=== PATIENT | female | born 1960 | race American Indian/Alaskan Native ===

== ENCOUNTER → 2020-01-18 13:58 | Outpatient (BNVA) | payer MEDICARE, MEDICAID, SELFPAY | PROVIDERS: PCP Internal Medicine Geriatric Medicine; Referring Provider Internal Medicine Geriatric Medicine; Visit Provider Student in an Organized Health Care Education/Training Program | DX: M17.0 Bilateral primary osteoarthritis of knee (principal) | CPT/HCPCS: 20610; 99212 ==

== ENCOUNTER 2020-01-20 13:27 | Outpatient (REF) | payer MEDICARE, MEDICAID, SELFPAY ==
--- NOTE | 2020-01-20 13:31 | XR_ITS ---
EXAMINATION: BILATERAL KNEE X-RAY CLINICAL INFORMATION: Primary osteoarthritis COMPARISON: Previous right knee x-ray most recent May 2018 TECHNIQUE: 3 views of each knee FINDINGS: Right: Bone alignment is normal. No fracture or dislocation is seen. There are small osteophytes medial femoral tibial and patellofemoral joints. There is a small joint effusion. Left knee: Bone alignment is normal. No fracture or dislocation is seen. There are small osteophytes at the medial femoral tibial and patellofemoral joints. There is no joint effusion. XR/XR knee LT 3V IMPRESSION: Mild bilateral osteoarthritis, right greater than left.
--- NOTE | 2020-01-20 13:38 | XR_ITS ---
EXAMINATION: BILATERAL KNEE X-RAY CLINICAL INFORMATION: Primary osteoarthritis COMPARISON: Previous right knee x-ray most recent May 2018 TECHNIQUE: 3 views of each knee FINDINGS: Right: Bone alignment is normal. No fracture or dislocation is seen. There are small osteophytes medial femoral tibial and patellofemoral joints. There is a small joint effusion. Left knee: Bone alignment is normal. No fracture or dislocation is seen. There are small osteophytes at the medial femoral tibial and patellofemoral joints. There is no joint effusion. XR/XR knee RT 3V IMPRESSION: Mild bilateral osteoarthritis, right greater than left.
== END 2020-01-20 13:28 | disposition home or self-care (01) ==
LOC: HO.XRAY 13:27
PROVIDERS: PCP Internal Medicine Geriatric Medicine; Visit Provider Student in an Organized Health Care Education/Training Program
DX: M17.12 Unilateral primary osteoarthritis, left knee (principal); M17.11 Unilateral primary osteoarthritis, right knee
CPT/HCPCS: 73562

== ENCOUNTER 2020-03-10 13:00 | Outpatient (REF) | payer MEDICARE, MEDICAID, SELFPAY ==
--- NOTE | 2020-03-10 13:09 | XR_ITS ---
EXAMINATION: XR SHOULDER, RIGHT CLINICAL INFORMATION: Right shoulder pain COMPARISON: None TECHNIQUE: AP external rotation, Grashey, scapular Y, and axillary views of the right shoulder. FINDINGS: There is no visible acute fracture, dislocation or subluxation. The glenohumeral joint space is normal. There is m mild periarticular spurring right AC joint with vacuum phenomena. The soft tissues are normal. XR/XR shoulder RT min 2V IMPRESSION: Mild degenerative changes right AC joint. The glenohumeral joint space is normal.
== END 2020-03-10 13:01 | disposition home or self-care (01) ==
LOC: HO.XRAY 13:00
PROVIDERS: PCP Internal Medicine Geriatric Medicine; Visit Provider Family Medicine
DX: M25.511 Pain in right shoulder (principal)
CPT/HCPCS: 73030

== ENCOUNTER → 2020-04-04 13:52 | Outpatient (BNVA) | payer MEDICARE, MEDICAID, SELFPAY | PROVIDERS: PCP Internal Medicine Geriatric Medicine; Visit Provider Orthopaedic Surgery | DX: M75.41 Impingement syndrome of right shoulder (principal) | CPT/HCPCS: 99202 ==

== ENCOUNTER → 2020-05-18 08:55 | Outpatient (BNVA) | payer MEDICARE, MEDICAID, SELFPAY | PROVIDERS: PCP Internal Medicine Geriatric Medicine; Visit Provider Student in an Organized Health Care Education/Training Program | DX: M17.11 Unilateral primary osteoarthritis, right knee (principal); M17.12 Unilateral primary osteoarthritis, left knee | CPT/HCPCS: 20610; 99212 ==

== ENCOUNTER 2021-05-02 14:26 | Outpatient (REF) | payer MEDICARE, MEDICAID, SELFPAY ==
--- NOTE | ~2021-05-02 | MM_ITS ---
EXAMINATION: MM SCREENING DIGITAL BREAST TOMOSYNTHESIS, BILATERAL CLINICAL INFORMATION: Screening. Asymptomatic. The lifetime risk of breast cancer based on the Tyrer-Cuzick Model is 11%. COMPARISON: Mammography: 05/26/2018, 11/05/2011, 10/21/2011; targeted left breast ultrasound 11/05/2011. TECHNIQUE: Digital breast tomosynthesis is performed in both the craniocaudal and mediolateral oblique views along with computer-aided detection (CAD). Synthesized 2D images are generated from the tomosynthesis. FINDINGS: There are scattered areas of fibroglandular density (ACR BI-RADS breast composition Category b). There are no significant masses, abnormal calcifications, or other abnormalities. There is a small cyst posterior medial left breast similar to remote prior mammography and ultrasound 2011. There is no developing density or interval mass or architectural abnormality. No abnormal calcifications. MM/MM tomosynthesis screening BI IMPRESSION: No mammographic evidence of malignancy. ASSESSMENT: BI-RADS 2: Benign RECOMMENDATION: Routine annual mammography screening. This patient's information was entered into a reminder system with a target due date for their next mammogram.
== END 2021-05-02 14:27 | disposition home or self-care (01) ==
LOC: HO.MAMMO 14:26
PROVIDERS: PCP Internal Medicine Geriatric Medicine; Visit Provider Internal Medicine Geriatric Medicine
DX: Z12.31 Encounter for screening mammogram for malignant neoplasm of breast (principal)
CPT/HCPCS: 77063; 77067

== ENCOUNTER 2021-05-03 12:12 | Outpatient (REF) | payer MEDICARE, MEDICAID, SELFPAY ==
--- NOTE | ~2021-05-03 | XR_ITS ---
EXAMINATION: XR KNEE AP STANDING CLINICAL INFORMATION: Pain COMPARISON: Previous x-ray December 2019 TECHNIQUE: AP bilateral standing view of the knees was obtained. FINDINGS: Bone alignment is normal. No fracture or dislocation is seen. There is arthritis at the medial femoral tibial joints, right greater than left. Soft tissues are unremarkable. XR/XR knee standing BI IMPRESSION: Arthritis at the medial femoral tibial joints, right greater than left.
== END 2021-05-03 12:13 | disposition home or self-care (01) ==
LOC: HO.HOSX 12:12
PROVIDERS: Visit Provider Orthopaedic Surgery
DX: M17.0 Bilateral primary osteoarthritis of knee (principal); E11.9 Type 2 diabetes mellitus without complications; F17.210 Nicotine dependence, cigarettes, uncomplicated
CPT/HCPCS: 20610; 73565; 99202; J1100

== ENCOUNTER → 2021-06-19 15:07 | Outpatient (BNVA) | payer MEDICARE, MEDICAID, SELFPAY | PROVIDERS: PCP Internal Medicine Geriatric Medicine; Visit Provider Orthopaedic Surgery | DX: G56.01 Carpal tunnel syndrome, right upper limb (principal) | CPT/HCPCS: 99202 ==

== ENCOUNTER 2021-07-23 10:53 | Day surgery (SDC) | payer MEDICARE, MEDICAID, SELFPAY ==
--- NOTE | 2021-07-23 10:53 | W.PM.OPN ---
Operative Note Operative Note Date of Service: 07/23/21 Narrative: Preop diagnosis: 1. right Carpal tunnel syndrome Postop diagnosis: same Procedure: 1. right Carpal tunnel release Surgeon: Ashley Sampson MD Anesthesia: local block using 1% lidocaine with epinephrine Findings: Thickened transverse carpal ligament. EBL: Less than 5 mL Specimens: None Complications: None Disposition: Brought to recovery room in stable condition Plan: Follow-up for 10-14 days for wound check and suture removal Indications: The patient is 61 years old, with right carpal tunnel syndrome that has been unresponsive to nonoperative management. The risks and benefits of operative treatment including but not limited to risk of damage to blood vessels, nerves, tendons, infection, persistent pain, persistent symptoms, or possible need for additional surgery were discussed with the patient and the patient wishes to proceed with surgery. Procedure: Once consent was obtained a local block was performed using a combination of 1% lidocaine with epinephrine. The patient was then brought back to the operating suite and placed on the operative table in supine position. A tourniquet was applied to the proximal aspect of the right upper extremity and the limb was prepped and draped in a standard surgical fashion. Once assured that we had a good block, a 1.5 cm longitudinal incision was made centered over the carpal tunnel. The incision was made through the skin to the subcutaneous tissues using a #15 blade. Dissection was made down to the level of the transverse carpal ligament with care being taken to protect the palmar cutaneous nerve. Once the transverse carpal ligament was clearly visualized, a longitudinal incision was made in the transverse carpal ligament 1st using a #15 blade, then using tenotomy scissors under direct visualization. Care was taken to look for and protect the motor branch of the median nerve when seen in this area. Once satisfied with our carpal tunnel release the wound was copiously irrigated with normal saline and hemostasis was obtained with a brief period of local pressure. The skin edges were reapproximated with some 5.0 nylon suture material and a sterile dressing was applied. The patient appears to have tolerated the procedure well and with no complications. All digits were well vascularized at the conclusion of the case.
[2021-07-23 11:01] VITALS: BMI 50.5
[2021-07-23 11:02] VITALS: BP 135/70; PULSE 65; RESP 16; TEMP 36.8; O2SAT 96
--- NOTE | 2021-07-23 11:37 | MHC.SHP ---
Pre-Procedural Eval Section A Date of Service: 07/23/21 The patient is an INPATIENT: No Changes since office visit: No Cold of Flu in the past 2 weeks, No New Medical Problems, No Changes in Medication and No Patient answered all questions The History & Physical has been completed within 30 days and I have reviewed it.: Yes Section B Chief Complaint: lesion median nerve Allergies: Allergies Allergy/AdvReac Type Severity Reaction Status Date / Time No Known Allergies Allergy Verified 06/19/21 15:27 Plan I have reviewed the history and physical and performed a pertinent physical examination on my patient. No changes have occurred unless specified.
[2021-07-23 12:28] VITALS: BP 116/58; PULSE 64; RESP 18; TEMP 36.6; O2SAT 99
== END 2021-07-23 12:41 | disposition home or self-care (01) ==
PROVIDERS: PCP Internal Medicine Geriatric Medicine; Visit Provider Orthopaedic Surgery
PROC: (CPT 64721; principal; 2021-07-23 12:10)
DX: G56.10 Other lesions of median nerve, unspecified upper limb (principal); R20.0 Anesthesia of skin; E11.8 Type 2 diabetes mellitus with unspecified complications; F41.1 Generalized anxiety disorder; F17.210 Nicotine dependence, cigarettes, uncomplicated; Z98.84 Bariatric surgery status
CPT/HCPCS: 64721; J0171

== ENCOUNTER → 2021-08-02 13:02 | Outpatient (BNVA) | payer MEDICARE, MEDICAID, SELFPAY | PROVIDERS: Visit Provider Orthopaedic Surgery | DX: M17.0 Bilateral primary osteoarthritis of knee (principal) | CPT/HCPCS: 20610; 99212; J1100 ==

== ENCOUNTER → 2021-08-07 12:10 | Outpatient (BNVA) | payer MEDICARE, MEDICAID, SELFPAY | PROVIDERS: Visit Provider Orthopaedic Surgery | DX: G56.01 Carpal tunnel syndrome, right upper limb (principal) | CPT/HCPCS: 99212 ==

== ENCOUNTER 2021-12-14 10:51 | Outpatient (REF) | payer MEDICARE, MEDICAID, SELFPAY ==
--- NOTE | ~2021-12-14 | XR_ITS ---
EXAMINATION: XR SHOULDER, RIGHT CLINICAL INFORMATION: Right shoulder pain. COMPARISON: Right shoulder radiographs dated 03/10/2020. TECHNIQUE: AP external rotation, Grashey, scapular Y, and axillary views of the right shoulder. FINDINGS: Mild right glenohumeral and acromioclavicular degenerative joint changes are seen. There is no acute fracture, dislocation or joint effusion. The soft tissues are unremarkable. XR/XR shoulder RT min 2V IMPRESSION: Mild degenerative joint changes without significant change. No acute abnormality.
--- NOTE | ~2021-12-14 | XR_ITS ---
EXAMINATION: XR FOOT, LEFT CLINICAL INFORMATION: Left foot pain. COMPARISON: None TECHNIQUE: AP, lateral, and oblique views of the left foot. FINDINGS: There is no acute fracture or dislocation. The joint spaces are unremarkable. The tarsal bones are normally aligned. There is a small retrocalcaneal spur. Mild soft tissue swelling is seen. XR/XR foot LT min 3V IMPRESSION: Mild soft tissue swelling and small retrocalcaneal spur without acute osseous abnormality.
== END 2021-12-14 10:52 | disposition home or self-care (01) ==
LOC: HO.XRAY 10:51
PROVIDERS: PCP Internal Medicine Geriatric Medicine; Visit Provider Internal Medicine Geriatric Medicine
DX: M25.511 Pain in right shoulder (principal); M79.672 Pain in left foot
CPT/HCPCS: 73030; 73630

== ENCOUNTER 2022-02-26 12:13 | Outpatient (REF) | payer MEDICARE, MEDICAID, SELFPAY ==
--- NOTE | ~2022-02-26 | XR_ITS ---
EXAMINATION: XR CHEST CLINICAL INFORMATION: Acute cough, asthma. COMPARISON: None. TECHNIQUE: 2 views of the chest were obtained. FINDINGS: The lungs are hypoexpanded and clear. The heart size and pulmonary vascularity is normal. No gross bony or the body seen. XR/XR chest 2V IMPRESSION: Unremarkable chest exam. Hypoexpanded lungs without acute process.
== END 2022-02-26 12:14 | disposition home or self-care (01) ==
LOC: HO.XRAY 12:13
PROVIDERS: PCP Internal Medicine Geriatric Medicine; Visit Provider Family Medicine
DX: R05.1 Acute cough (principal)
CPT/HCPCS: 71046

== ENCOUNTER 2022-05-22 10:59 | Outpatient (REF) | payer MEDICARE, MEDICAID, SELFPAY ==
--- NOTE | ~2022-05-22 | CT_ITS ---
EXAMINATION: CT CHEST SCREENING CLINICAL INFORMATION: Nicotine dependence. COMPARISON: Chest x-ray 02/26/2022. TECHNIQUE: Multidetector volumetric CT imaging of the chest is performed without contrast using low dose technique. Additional 2D coronal and sagittal reformatted images and axial 3D maximum intensity projection (MIP) images are generated on the CT workstation. This CT examination was performed using dose optimization techniques as appropriate, variously including the following: *Automated exposure control *Adjustment of mA and/or kV according to patient size (this includes techniques or standardized protocols for targeted exams where dose is matched to indication/reason for exam; i.e. extremities or head) *Use of iterative reconstruction technique DLP: 66 mGy-cm FINDINGS: LUNGS: Lungs are well expanded and clear of acute pneumonic process. There are no pulmonary nodules, mass or consolidation. Small focal atelectatic changes are seen medially in the left lung base. MEDIASTINUM: Thyroid lobes are symmetrical and normal. The central trachea and the bronchi are widely patent. The heart size and the great vessels are normal caliber. No pericardial effusion seen. No abnormal-size mediastinal or hilar lymph nodes. CORONARY ARTERY CALCIFICATION: None visualized on this study. PLEURA: There is no pleural effusion. No pleural mass or thickening. AXILLA: No lymphadenopathy. UPPER ABDOMEN: Visualized liver, spleen, pancreas and bilateral adrenal glands are unremarkable. OSSEOUS STRUCTURES: No aggressive lytic or sclerotic process seen. There is mild ventral spondylosis throughout dorsal spine. CT/CT lung screening IMPRESSION: Unremarkable CT chest exam. ASSESSMENT: Lung-RADS category 1: Negative RECOMMENDATION: Low-dose annual CT chest exam.
== END 2022-05-22 11:00 | disposition home or self-care (01) ==
LOC: HO.CT 10:59
PROVIDERS: Visit Provider Physician Assistant Medical
DX: Z12.2 Encounter for screening for malignant neoplasm of respiratory organs (principal); F17.210 Nicotine dependence, cigarettes, uncomplicated
CPT/HCPCS: 71271

== ENCOUNTER → 2022-05-31 13:54 | Outpatient (BNVA) | payer MEDICARE, MEDICAID, SELFPAY | PROVIDERS: PCP Internal Medicine Geriatric Medicine; Visit Provider Physician Assistant Medical | DX: F17.210 Nicotine dependence, cigarettes, uncomplicated (principal); Z71.6 Tobacco abuse counseling | CPT/HCPCS: G0296 ==

== ENCOUNTER 2022-09-19 11:56 | Outpatient (REF) | payer MEDICARE, MEDICAID, SELFPAY | END 2022-09-19 11:57 | disposition home or self-care (01) | LOC: HO.HOSX 11:56 | PROVIDERS: Visit Provider Orthopaedic Surgery | DX: M17.0 Bilateral primary osteoarthritis of knee (principal); M70.72 Other bursitis of hip, left hip; Z87.39 Personal history of other diseases of the musculoskeletal system and connective tissue | CPT/HCPCS: 20610; 73560; 73565; 99212; J1100 ==

== ENCOUNTER 2023-01-15 12:31 | Outpatient (REF) | payer MEDICARE, MEDICAID, SELFPAY ==
[2023-01-15 14:38] LABS: Anion Gap 11 (12-20); Blood Urea Nitrogen 13 mg/dL (9-16); Calcium 10.4 mg/dL (8.4-10.2); Carbon Dioxide 25 mmol/L (22-29); Chloride 108 mmol/L (96-108); Estimated Glomerular Filt Rate > 60; Glucose Random 84 mg/dL (60-115); Potassium 4.3 mmol/L (3.3-5.1); Sodium 140 mmol/L (135-145)
[2023-01-15 17:09] LABS: Creatinine Urine 153.74 mg/dL; Microalbum/Creatinine Ratio Ur 9.7 ug/mg cr (<30)
== END 2023-01-15 12:32 | disposition home or self-care (01) ==
LOC: HO.HHCL 12:31
PROVIDERS: Visit Provider Internal Medicine Geriatric Medicine
DX: E11.9 Type 2 diabetes mellitus without complications (principal)
CPT/HCPCS: 36415; 80048; 82043; 82570

== ENCOUNTER 2023-11-14 10:59 | Outpatient (AMB) | payer MEDICARE, MEDICAID, SELFPAY ==
--- NOTE | 2023-11-14 11:18 | MHC.OFFVIS ---
Vital Signs 11/14/23 11:27 Height 4 ft 11 in Weight 176 lb BMI 35.5 Intake Visit Reasons: OV - Bilateral Knee OA Intake Note: Susana is a 62 year old woman with severe right knee OA. She was last injected 09/20/23, with good relief. She has pain with daily activity, worse with using stairs and at night. Patient also has history of left knee OA, which was last injected 05/03/21 Allergies No Known Allergies Allergy (Verified 11/14/23 11:24) HPI HPI OV - Bilateral Knee OA: Details: Susana is a 62 year old woman with severe right knee OA. She was last injected 09/20/23, with good relief. She has pain with daily activity, worse with using stairs and at night. Patient also has history of left knee OA, which was last injected 05/03/21. She is complaining of left knee pain mostly today. SHe has had injections in the past but took a break for the last year becasue of weight gain and her diabetes. [facility] Medical History (Updated 09/19/22 @ 16:51 by Harsha Duarte MD) Nicotine dependence, cigarettes, uncomplicated Carpal tunnel syndrome of right wrist Depression Anxiety Diabetes Obesity Rotator cuff impingement syndrome of right shoulder Primary osteoarthritis of right knee History of anemia History of asthma History of vitamin D deficiency History of fibromyalgia Surgical History History of carpal tunnel surgery of right wrist History of endoscopy History of hysteroscopy History of colonoscopy History of gastric bypass History of section Family History Mother No problems noted. Father No problems noted. Social History Alcohol intake: never Patient Tobacco Use Status: Current everyday Tobacco user Tobacco use type: Cigarette Years Smoked: (onset 17yo, 1ppd x 45yrs, 40pyh) Current occupational status: disabled Current occupation: right handed Physical Exam Vital Signs: BMI result Body Mass Index 35.5 Extrem Other: medial joint line ttp left knee. Office Procedures Joint Injection/Aspiration Joint Injection/Aspiration Details: Injected 1 mL of Decadron and 3 mL 1% lidocaine and 3 mL of 0.25% Marcaine. Site was prepped using aseptic technique. Patient tolerated the procedure well. Primary Site: left knee Approach Used: anterolateral Coding - Large joint Procedure code (CPT) selection complete Assessment & Plan Assessment & Plan (1) Primary osteoarthritis of left knee: Code(s): M17.12 - Unilateral primary osteoarthritis, left knee Category: Medical Plan: I injected her left knee today. If that is not sufficiently helpful we can consider gel injections. If it helps for more than 3 months she can return to see me for repeat injections. (2) Diabetes: Code(s): E11.9 - Type 2 diabetes mellitus without complications Category: Medical Plan: Informed patient of hyperglycemic effects of steroids Coding Level of Care Code Est Pt Level 4 (10495) Diagnoses Primary osteoarthritis of left knee M17.12 Diabetes E11.9 CPT Codes Coding - Large joint: 68175 - Large joint ([id number])
[2023-11-14 11:27] VITALS: BMI 35.5
== END 2023-11-14 12:02 | disposition home or self-care (01) ==
PROVIDERS: PCP Internal Medicine Geriatric Medicine; Visit Provider Orthopaedic Surgery
DX: M17.12 Unilateral primary osteoarthritis, left knee (principal); E11.9 Type 2 diabetes mellitus without complications
CPT/HCPCS: 20610; 99214

== ENCOUNTER → 2023-11-14 10:59 | Outpatient (BNVA) | payer MEDICARE, MEDICAID, SELFPAY | PROVIDERS: PCP Internal Medicine Geriatric Medicine; Visit Provider Orthopaedic Surgery | DX: M17.0 Bilateral primary osteoarthritis of knee (principal); E11.9 Type 2 diabetes mellitus without complications | CPT/HCPCS: 20610; 99212; J0665; J1100 ==

== ENCOUNTER 2024-01-19 11:32 | Outpatient (REF) | payer MEDICARE, MEDICAID, SELFPAY ==
[2024-01-19 14:08] LABS: Estimated Average Glucose 120 mg/dL; Hemoglobin A1C 107.3323 umol/L; Hemoglobin A1c % 5.8 % (<6.0); Total Hemoglobin (HGBA1C) 2711.5457 umol/L
[2024-01-19 14:22] LABS: Alanine Aminotransferase 20 U/L (0-31); Albumin Level 4.2 g/dL (3.5-5.0); Alkaline Phosphatase 117 U/L (39-117); Anion Gap 12 (12-20); Aspartate Amino Transferase 35 U/L (5-31); Bilirubin Total 0.3 mg/dL (0.0-1.0); Blood Urea Nitrogen 13 mg/dL (9-16); Carbon Dioxide 21 mmol/L (22-29); Chloride 111 mmol/L (96-108); Estimated Glomerular Filt Rate > 60; Glucose Random 152 mg/dL (60-115); Potassium 3.5 mmol/L (3.3-5.1); Sodium 140 mmol/L (135-145); Total Protein 7.1 g/dL (6.5-8.0)
[2024-01-19 14:43] LABS: Creatinine Urine 210.95 mg/dL; Microalbum/Creatinine Ratio Ur 14.6 ug/mg cr (<30)
[2024-01-19 18:53] LABS: CT PCR NOT DETECTED (Not Detect.); NG PCR NOT DETECTED (Not Detect.)
[2024-01-20 11:53] LABS: HIV AB/AG Nonreactive (Nonreactive); HIV Num 1 0.07 S/CO (0.00-0.99); ~HepC Num1 0.29 S/CO (0.00-0.79); ~Hepatitis C Antibody Nonreactive (Nonreactive)
[2024-01-21 11:58] LABS: RPR Rapid Plasma Reagin NON-REACTIVE (NON-REACTIVE)
== END 2024-01-19 11:33 | disposition home or self-care (01) ==
LOC: HO.HHCL 11:32
PROVIDERS: Visit Provider General Practice
DX: Z11.3 Encounter for screening for infections with a predominantly sexual mode of transmission (principal); E11.9 Type 2 diabetes mellitus without complications
CPT/HCPCS: 36415; 80053; 82043; 82570; 83036; 86592; 86803; 87389; 87491; 87591

== ENCOUNTER 2024-06-28 10:52 | Outpatient (REF) | payer MEDICARE, MEDICAID, SELFPAY ==
--- OUTSIDE RECORDS SUMMARY | 2024-06-28 13:00 | XMS_ITS | Encounter Summary ---
Author Organization [employer] Address [address] [facility] [address] [place] [address] Care Team Providers Care Risk Control Officer Name Role Phone Name, Henri KEYES Primary Care Provider [phone] Reason for Visit * Reason Comments Med Change Request Encounter Details Date Type Department Care Team ([facility] Contact Info) Description 03/04/2022 Refill [facility] [address] [place], [place] [phone] Rose Choi MD [address] [place], [place] [phone] Wheezing Social History Tobacco Use Types Packs/Day Years Used Date Smoking Tobacco: Never Passive Smoke Exposure: Never Smokeless Tobacco: Never Comments Unknown Sex and Gender Information Value Date Recorded Sex Assigned at Female 01/21/2022 10:18 AM EDT Legal Sex Female 10:18 AM EDT Gender Identity Female 01/21/2022 10:18 AM EDT Sexual Orientation Choose not to disclose 2021 10:18 AM EDT COVID-19 Exposure Response Date Recorded In the last 10 days, have yo u been in contact with someone who was confirmed or suspected to have Coronavirus/COVID-19? No / Unsure 02/25/2022 3:54 PM EST documented as of this encounter Miscellaneous Notes * Telephone Encounter - Chitra Lobo - 03/07/2022 2:27 PM EST RX for nebulizer faxed to [facility] [place] with notes 03/07/2022 * Telephone Encounter - Chitra Lobo - 03/06/2022 10:08 AM EST New RX generated for nebulizer waiting on signature also [phone] * Telephone Encounter - Elina Orona RN - 03/05/2022 2:16 PM EST Pt presents to [facility] reporting she needs nebulizer tubing/mask. Pt given supply in stock. RN willforward message to provider Dr. Choi whom saw pt, regarding orders for respiratory supplies. Please advise [facility]EN TEAM NURSES as needed. TY * Telephone Encounter - Kristin Champagne - 03/05/2022 8:38 AM EST Please review message below documented in this encounter Plan of Treatment Upcoming Encounters Date Type Department Care Team (Late st Contact Info) Description 10/13/2024 3:45 PM EDT Office Visit [facility] [address] [place] [address] Name, MD Henri [address] [place] [address] documented as of this encounter Visit Diagnoses Diagnosis Wheezing documented in this encounter Care Teams Risk Control Officer Relationship Specialty Start Date End Date Name, MD Henri [address] [place] [address] PCP - General Family Medicine 04/04/15 documented as of this encounter
--- OUTSIDE RECORDS SUMMARY | 2024-06-28 13:00 | XMS_ITS | Encounter Summary ---
Author Organization [employer] [facility] Address [address] [facility] [address] [place] [address] Care Team Providers Care Conventional Machinist Name Role Phone Name, Henri KEYES Primary Care Provider [phone] Encounter Details Date Type Department Care Team ([facility] Contact Info) Description 12/09/2022 Telephone [facility] [address] [place] [address] [phone] Henri Patrick MD [address] [place] [address] [phone] Social History Tobacco Use Types Packs/Day Years Used Date Smoking Tobacco: Every Day Cigarettes Passive Smoke Exposure: Never Smokeless Tobacco: Never Alcohol Use Standard Drinks/Week Comments Never 0 (1 standard drink = 0.6 oz pur e alcohol) Depression Answer Date Recorded Patient Health Questionnaire-9 Score 21 08/20/2022 Depression Answer Date Recorded Patient Health Questionnaire-2 Score 6 08/20/2022 Comments Unknown Sex and Gender Information Value Date Recorded Sex Assigned at Female 01/21/2022 10:18 AM EDT Legal Sex Female 10:18 AM EDT Gender Identity Female 01/21/2022 10:18 AM EDT Sexual Orientation Choose not to disclose 2021 10:18 AM EDT documented as of this encounter Plan of Treatment Upcoming Encounters Date Type Department Care Team (Late Contact Info) Description 10/13/2024 3:45 PM EDT Office Visit [facility] [address] [place] [address] [phone] Henri Patrick MD [address] [place] [address] [phone] documented as of this encounter Visit Diagnoses Not on filedocumented in this encounter Additional Health Concerns Assessment Noted Time PHQ-9 Depression Total Score: 21 023 1:40 PM EDT documented as of this encounter Care Teams Conventional Machinist Relationship Specialty Start Date End Date Name, MD Henri [address] [place] [address] PCP - General Family Medicine 04/04/15 documented as of this encounter
--- OUTSIDE RECORDS SUMMARY | 2024-06-28 13:00 | XMS_ITS | Encounter Summary ---
Author Organization [employer] Address [address] [facility] [address] [place] [address] Care Team Providers Care Sample Washer Name Role Phone Name, Henri KEYES Primary Care Provider [phone] Reason for Visit * Reason Comments Med Refill Encounter Details Date Type Department Care Team (Late Contact Info) Description 08/24/2022 Refill [facility] [address] [place] [address] [phone] Name, MD Henri [address] [place] [phone] Social History Tobacco Use Types Packs/Day Years [...] suspected to have Coronavirus/COVID-19? No / Unsure 08/20/2022 1:29 PM EDT documented as of this encounter Plan of Treatment Upcoming Encounters Date Type Department Care Team (Late Contact Info) Description 10/13/2024 3:45 PM EDT Office Visit [facility] [address] [place] [address], [place] [address] Name, MD Henri [address] [place] [address] documented as of this encounter Visit Diagnoses Not on filedocumented in this encounter Additional Health Concerns Assessment Noted Time PHQ-9 Depression Total Score: 21 023 1:40 PM EDT documented as of this encounter Care Teams Sample Washer Relationship Specialty Start Date End Date Name, MD Henri [address] [place] [address] PCP - General Family Medicine 04/04/15 documented as of this encounter
--- OUTSIDE RECORDS SUMMARY | 2024-06-28 13:00 | XMS_ITS | Encounter Summary ---
Author Organization [employer] [facility] Address [address] [facility] [address] [place] [address] Care Team Providers Care Manager Biologics Name Role Phone Name, Henri KEYES Primary Care Provider [phone] Encounter Details Date Type Department Care Team (Late st Contact Info) Description 04/30/2022 Orders Only [facility] [address] [place] [phone] Aminah Orona LPN Social History Tobacco Use Types Packs/Day Years [...] Description 10/13/2024 3:45 PM EDT Office Visit [facility] [address] [place] [phone] Henri Patrick MD [address] [place] [phone] documented as of this encounter Visit Diagnoses Not on filedocumented in this encounter Care Teams Manager Biologics Relationship Specialty Start Date End Date Henri Patrick MD [address] [place] [phone] PCP - General Family Medicine 04/04/15 documented as of this encounter
--- OUTSIDE RECORDS SUMMARY | 2024-06-28 13:00 | XMS_ITS | Encounter Summary ---
Author Organization [employer] Address [address] [facility] 7[address] [place] [address] Care Team Providers Care Service Liaison Representative Name Role Phone Name, Henri KEYES Primary Care Provider [phone] Reason for Visit * Reason Comments Med Refill Encounter Details Date Type Department Care Team ([facility] Contact Info) Description 08/18/2022 Refill [facility] [address] [place] [address] Name, MD Henri [address] [place], [place] [phone] Fibromyalgia; Osteoarthritis of knee, unspecified laterality, unspecified osteoarthritis type Social History Tobacco Use Types Packs/Day Years Used Date Smoking Tobacco: Never Passive Smoke Exposure: Never Smokeless Tobacco: Never Depression Answer Date Recorded Patient Health Questionnaire-9 [...] PM EDT documented as of this encounter Miscellaneous Notes * Telephone Encounter - Elaine Modi - 08/20/2022 2:06 PM EDT Pt is in need of finding a place to go. States she was given notice to leave her apartment, [place] [address] [place] has been getting denied for apartments. She also needs help with her light bill it is about to be turned off. documented in this encounter Plan of Treatment Upcoming Encounters Date Type Department Care Team (Late st Contact Info) Description 10/13/2024 3:45 PM EDT Office Visit [facility] [address] [place] [address] Name, MD Henri [address] [place] [address] documented as of this encounter Visit Diagnoses Diagnosis Fibromyalgia Unspecified myalgia and myositis Osteoarthritis of knee, unspecified laterality, unspecified osteoarthritis type documented in this encounter Care Teams Service Liaison Representative Relationship Specialty Start Date End Date Name, MD Henri [address] [place] [phone] PCP - General Family Medicine 04/04/15 documented as of this encounter
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
--- OUTSIDE RECORDS SUMMARY | 2024-06-28 13:00 | XMS_ITS | Encounter Summary ---
Author Organization [employer] Address [address] [facility] [address] [place] [address] Care Team Providers Care Ground Defence Officer Name Role Phone Name, Henri KEYES Primary Care Provider [phone] Encounter Details Date Type Department Care Team ([facility] Contact Info) Description 09/22/2023 Telephone [facility] [address] [place], [place] [phone] Name, MD Henri [address] [place], [place] [phone] Social History Tobacco Use Types Packs/Day Years [...] encounter Miscellaneous Notes * Telephone Encounter - Kerrie Freire RN - 09/22/2023 12:51 PM EDT T/C to [phone] EXT [phone] for below message. No answer. LVM to call back on [phone] . * Telephone Encounter - Cee Sheets - 09/22/2023 9:05 AM EDT Tc yas [place] with [facility] requesting a call back . Regarding last message . Please contact [phone] EXT [phone] documented in this encounter Plan of Treatment Upcoming Encounters Date Type Department Care Team (Late st Contact Info) Description 10/13/2024 3:45 PM EDT Office Visit [facility] [address] [place] [address] Name, MD Henri [address] [place] [address] documented as of this encounter Visit Diagnoses Not on filedocumented in this encounter Additional Health Concerns Assessment Noted Time PHQ-9 Depression Total Score: 17 024 10:47 AM EST documented as of this encounter Care Teams Ground Defence Officer Relationship Specialty Start Date End Date Name, MD Henri [address] [place] [address] PCP - General Family Medicine 04/04/15 documented as of this encounter
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
--- OUTSIDE RECORDS SUMMARY | 2024-06-28 13:01 | XMS_ITS | Encounter Summary ---
Author Organization [employer] [facility] Address [address] [facility] [address]t [place] [address] Care Team Providers Care Campus Rep Name Role Phone Name, Henri KEYES Primary Care Provider [phone] Encounter Details Date Type Department Care Team ([facility] Contact Info) Description 03/04/2022 Orders Only [facility] [address] [place] [phone] Rose Choi MD [address] [place] [phone] Acute non-recurrent sinusitis, unspecified location (Primary Dx); Wheezing Social History Tobacco Use Types Packs/Day [...] PM EST documented as of this encounter Plan of Treatment Upcoming Encounters Date Type Department Care Team (Late Contact Info) Description 10/13/2024 3:45 PM EDT Office Visit [facility] [address] [place] [phone] Name, MD Henri [address] [place] [address] [phone] documented as of this encounter Visit Diagnoses Diagnosis Acute non-recurrent sinusitis, unspecified location- Primary Wheezing documented in this encounter Care Teams Campus Rep Relationship Specialty Start Date End Date Name, MD Henri [address] [place] [address] PCP - General Family Medicine 04/04/15 documented as of this encounter
--- OUTSIDE RECORDS SUMMARY | 2024-06-28 13:01 | XMS_ITS | Encounter Summary ---
Author Organization [employer] Address [address] [facility] [address] [place] [address] Care Team Providers Care Sand Slinger Operator Name Role Phone Name, Henri KEYES Primary Care Provider [phone] Reason for Visit * Reason Onset Date Comments Med Refill 03/20/2023 Encounter Details Date Type Department Care Team ([facility] Contact Info) Description 03/20/2023 Telephone [facility] [address] [place] [address] Name, MD Henri [address] [place], [place] [phone] Med Refill Social History Tobacco Use Types Packs/Day Years Used Date Smoking Tobacco: Every Day Cigarettes Passive Smoke Exposure: Never Smokeless Tobacco: Never Alcohol Use Standard Drinks/Week Comments Never 0 (1 standard drink = 0.6 oz pur e alcohol) Depression Answer Date Recorded Patient Health Questionnaire-9 Score 21 08/20/2022 Housing Stability Answer Date Recorded What is [...] * Telephone Encounter - Reny Camilo - 03/20/2023 11:07 AM EST TC from pt requesting medication refill. Medications needing refill : traMADol (Ultram) 50 MG tablet To be sent to: [facility]/pharmacy #[id number] documented in this encounter Plan of Treatment Upcoming Encounters Date Type Department Care Team (Late st Contact Info) Description 10/13/2024 3:45 PM EDT Office Visit [facility] [address] [place] [address] Name, MD Henri [address] [place] [address] documented as of this encounter Visit Diagnoses Not on filedocumented in this encounter Additional Health Concerns Assessment Noted Time PHQ-9 Depression Total Score: 21 023 1:40 PM EDT documented as of this encounter Care Teams Sand Slinger Operator Relationship Specialty Start Date End Date Name, MD Henri [address] [place] [address] PCP - General Family Medicine 04/04/15 documented as of this encounter
--- OUTSIDE RECORDS SUMMARY | 2024-06-28 13:01 | XMS_ITS | Clinical Summary ---
Author Organization [employer] Address [address] [place] [address] 7[address] [place] [address] Care Team Providers Care Film Reader Name Role Phone Name, Henri KEYES Primary Care Provider [phone] Allergies Active Allergy Reactions Criticality Noted Date Comments Oxycodone-Acetaminophen 08/20/2023 Medications Respiratory Therapy Supplies (Nebulizer Mask Adult) miscIndications:W heezing 1 each every 4 (four) hours if needed (asthma). 2 each 1 022 Active zolpidem (Ambien) 10 MG tablet TOME GRICELDA TABLETA TODOS LOS D AL ACOSTARSE CUANDO SEA NECESARIO 023 Active risperiDONE (RisperDAL) 2 MG tablet TOME GRICELDA TABLETA TODOS LOS D 023 Active prazosin (Minipress) 2 MG capsule TOME GRICELDA C PSULA TODOS LOS D AL ACOSTARSE 023 Active Varenicline Tartrate, Starter, (Chantix Starting Month ) 0.5 MG X 11 & 1 MG X 42 tablet therapy pack Take 0.5 mg by mouth Once daily for 3 days, THEN 0.5 mg 2 times daily for 4 days, THEN 1 mg 2 times daily for 21 days. 1 each 023 Active lidocaine (Xylocaine) 5 % ointment APPLY TO THE AFFECTED KNEE DAILY 50 g 023 Active sertraline (Zoloft) 50 MG tabletIndications :Depression, recurrent (CMS/HCC) TOME 1 TABLETA POR V A ORAL TODOS LOS D Active SUMAtriptan (Imitrex) 25 MG tabletIndications :Migraine without status migrainosus, not intractable, unspecified migraine type Take 25 mg by mouth. Active zolpidem (Ambien) 10 MG tabletIndications :Primary insomnia Take 1 tablet by mouth at bed time. Active metoprolol succinate XL (Toprol-XL) 25 MG 24 hr tabletIndications :Palpitations TAKE 1 TABLET BY MOUTH EVERY MORNING 90 tablet 1 Active valACYclovir (Valtrex) 500 MG tabletIndications :Herpes TAKE 1 TABLET BY MOUTH TWICE A DAY FOR 3 DAYS 6 tablet 5 Active gabapentin (Neurontin) 300 MG capsuleIndication s:Fibromyalgia Take 1 capsule (300 mg) by mouth 3 times daily. 90 capsule 1 024 2024 Active cetirizine (ZyrTEC) 10 MG tablet Take 1 tablet (10 mg) by mouth Once per day. 30 tablet 3 025 2025 Active fluticasone (Flonase) 50 MCG/ACT nasal spray Administer 2 sprays into each nostril Once per day. Shake gently. Before first use, prime pump. After use, clean tip and replace cap. 16 g 3 2025 Active pseudoephedrine (Sudafed) 30 MG tablet Take 1 tablet (30 mg) by mouth every 8 (eight) hours if needed for congestion for up to 5 days. 12 tablet Active Dulaglutide (Trulicity) 1.5 MG/0.5ML solution auto-injectorIndi cations:Type 2 diabetes mellitus without complication, without long-term current use of insulin ([facility]),Primary osteoarthritis involving multiple joints,Chronic pain of both knees,Severe obesity (BMI 35.0-39.9) with comorbidity ([facility]) Inject 1.5 mg under the skin 1 (one) time per week. 2 mL 2 025 2024 Active meloxicam (Mobic) 7.5 MG tabletIndications :Chronic pain of both knees Take 1 tablet (7.5 mg) by mouth Once per day. 90 tablet 3 025 2025 Active budesonide (Pulmicort Flexhaler) 180 MCG/ACT inhalerIndication s:Moderate persistent asthma without complication 1 each Active albuterol 108 (90 Base) MCG/ACT inhalerIndication s:Moderate persistent asthma without complication Inhale 2 puffs every 6 (six) hours if needed for wheezing. 18 g 6 Active albuterol (2.5 MG/3ML) 0.083% nebulizer solutionIndicatio ns:Moderate persistent asthma without complication Take 3 mL (2.5 mg) by nebulization every 4 (four) hours if needed for wheezing. 75 mL 3 025 2025 Active pantoprazole (Protonix) 40 MG EC tablet Take 1 tablet (40 mg) by mouth before breakfast. Do not crush, chew, or split. 30 tablet 11 2025 Active dulaglutide (Trulicity) 0.75 MG/0.5ML solution pen-injector Inject 0.75 mg under the skin 1 (one) time per week. 4 each 024 2024 Discontinued(D ose adjustment) Acetaminophen Extra Strength 500 MG tabletIndications :Fibromyalgia TOME DOS TABLETAS POR V A ORAL CADA SEIS HORAS POR 3 DEE CUANDO SEA NECESARIO POR DOLOR 024 2024 Discontinued meloxicam (Mobic) 7.5 MG tabletIndications :Fibromyalgia Take 1 tablet (7.5 mg) by mouth Once per day. 90 tablet 3 2024 Discontinued(R eorder (will not trigger notification to Pharmacy)) albuterol 108 (90 Base) MCG/ACT inhalerIndication s:Moderate asthma with acute exacerbation, unspecified whether persistent Inhale 2 puffs every 6 (six) hours if needed for wheezing. 18 g 6 024 2024 Discontinued(R eorder (will not trigger notification to Pharmacy)) Trulicity 0.75 MG/0.5ML solution auto-injectorIndi cations:Type 2 diabetes mellitus without complication, without long-term current use of insulin ([facility]) Inject 0.75 mg as directed 1 (one) time per week. 2 mL 5 024 2024 Discontinued(D ose adjustment) albuterol (2.5 MG/3ML) 0.083% nebulizer solutionIndicatio ns:Moderate asthma with acute exacerbation, unspecified whether persistent Take 3 mL (2.5 mg) by nebulization every 4 (four) hours if needed for wheezing. 75 mL 3 024 2024 Discontinued(R eorder (will not trigger notification to Pharmacy)) budesonide (Pulmicort Flexhaler) 180 MCG/ACT inhalerIndication s:Moderate asthma with acute exacerbation, unspecified whether persistent 1 each 024 2024 Discontinued(R eorder (will not trigger notification to Pharmacy)) naproxen (Naprosyn) 500 MG tablet Take 1 tablet (500 mg) by mouth if needed in the morning and at bedtime for mild pain. 30 tablet 1 025 2024 Discontinued(T herapy completed) Active Problems Problem Noted Date Diagnosed Date Depression, recurrent 01/19/2024 Diabetes due to undrl condition w oth diabetic n euro comp 01/19/2024 Severe obesity (BMI 35.0-39.9) with comorbidity 08/15/2023 Anemia 08/08/2023 Anxiety with depression 08/07/2023 Fibromyalgia 08/07/2023 GERD (gastroesophageal reflux disease) Insomnia 08/07/2023 History of hysterectomy 05/27/2023 Hypertensive disorder 07/09/2022 T2DM (type 2 diabetes mellitus) 07/09/2022 Primary osteoarthritis of right knee 07/09/2022 Migraine 07/09/2022 History of bariatric surgery 07/09/2022 Moderate asthma 03/26/2018 Iron deficiency anemia 03/12/2017 Fibromyositis 08/15/2011 Vertigo 08/15/2011 Allergic rhinitis 08/15/2011 Palpitations 08/15/2011 Anxiety state 08/15/2011 Resolved Problems Problem Noted Date Diagnosed Date Resolved Date Acute left otitis media 09/24/2023 04/0 06/2024 Assessment & Plan (09/24/2023 3:11 PM EDT): -left ear exam significant for OM -prescribed amoxicillin for 10 days -recommended supportive care and letting the ear drain as needed Seasonal allergic reaction 07/09/2022 0 05/27/2023 Mild intermittent asthma 07/23/201806/2024 Knee pain 05/26/2018 05/27/2023 Viral upper respiratory tract infection 03/12/2017 05/27/2023 Closed fracture of phalanx of foot 02/05/2017 05/27/2023 Obesity (BMI 30-39.9) 04/22/20162024 Lateral epicondylitis 04/20/20152024 Abnormal mammogram 10/25/2011 Acute sinusitis 08/15/2011 05/27/2023 Localized osteoarthrosis 09/19/200907/2023 Encounters Date Type Department Care Team Description 06/25/2024 3:45 PM EDT Office Visit [facility] [address] [place] [phone] Name, MD Henri Type 2 diabetes mellitus without complication, without long-term current use of insulin (CMS/[facility]) (Primary Dx); Primary osteoarthritis involving multiple joints; Chronic pain of both knees; Situational anxiety; NSAID long-term use; Somnolence, daytime; Tiredness; Severe obesity (BMI 35.0-39.9) with comorbidity (CMS/HCC); Moderate persistent asthma without complication 06/25/2024 Travel 06/03/2024 2:40 PM EDT Office Visit [facility] [address] [place] [phone] Mindi Oliveros DO Pharyngitis, unspecified etiology (Primary Dx); Sore throat from Last 3 Months Immunizations Name Administration Dates Next Due Influenza Injectable Quadriv alant Preservative Free IIV4 MDCK 01/16/2021 Influenza injectable quadriv alent IIV4 with preservative 01/01/2019,02/05/2017,12/19/2015 Influenza injectable quadriv alent preservative free 01/29/2023,12/14/2021,03/26/2018 Influenza, IIV3, injectable 01/21/2014 Influenza, seasonal, injecta ble, preservative free 01/19/2024 Pfizer Covid-19 Vaccine 12+ 01/19/2024 Pneumococcal Polysaccharide PPSV23 04/20/2015 TD (adult), 2 Lf tetanus tox oid, preservative free, adsorbed 02/05/2017 Tdap 11/04/2014 Zoster, Recombinant 09/30/2023 Social History Tobacco Use Types Packs/Day Years [...] not to disclose 2021 10:18 AM EDT Last Filed Vital Signs Vital Sign Reading Time Taken Comments Blood Pressure 127/69 06/25/2024 3:38 PM EDT Pulse 88 06/25/2024 3:38 PM EDT Temperature 36.6 ??C (97.9 ??F) 06/03/2024 1:44 PM ED T Respiratory Rate 12 06/25/2024 3:38 PM EDT Oxygen Saturation 97% 06/25/2024 3:38 PM EDT Inhaled Oxygen Concentration - - Weight 81.7 kg (180 lb 3.2 oz) 06/25/2024 3:38 P M EDT Height 149.9 cm (4' 11 ) 06/25/2024 3:38 PM EDT Body Mass Index 36.4 06/25/2024 3:38 PM EDT Plan of Treatment Upcoming Encounters Date Type Department Care Team (Late st Contact Info) Description 10/13/2024 3:45 PM EDT Office Visit [facility] [address] [place], [place] [phone] Name, MD Henri [address] [place] [address] Health Maintenance Due Date Last Done Comments CT Colonography 1962 Colonoscopy 1962 Colorectal Cancer Screening 1962 FIT DNA/Cologuard 1962 FIT 1962 FOBT 1962 Sigmoidoscopy 1962 Eye Exam 02/02/1972 Alcohol/Substance Use Screening 1974 Pap Smear 1983 Cervical Cancer Screening 02/02/1992 HPV/Cotest 02/02/1992 Pneumococcal Vaccine: 50+ Years (2 of 2 - PCV) 04/20/2016 04/20/2015 RSV Patients and Patients Aged 60 years or older (1 - Risk 60-74 years 1-dose series) 2022 Lipid Panel 12/14/2022 12/14/2021, 01/17/2021 Mammogram 05/02/2023 05/02/2021, 05/27/2018 SDOH Screening 08/21/2023 08/20/2022 Zoster Vaccines (2 of 2) 11/25/2023 09/30/2023 Depression Monitoring (PHQ-9) 11/27/2023 05/27/2023, 05/27/2023 Depression Screening 05/26/2024 05/27/2023, 05/27/19 24 Diabetes: Foot Exam 05/26/2024 05/27/2023, 05/27/2023, 05/27/2023, Additional history exists Diabetes: Hemoglobin A1C 12/25/2024 025, 01/19/2024, 05/27/2023, Additional history exists Diabetes: Urine Protein Screening 01/18/2025 01/19/2024, 01/15/2023, 12/14/2021 Tobacco Screening 06/25/2025 06/25/2024 DTaP/Tdap/Td Vaccines (3 - Td or Tdap) 02/05/2027 02/05/2017, 11/04/2014 COVID-19 Vaccine Completed 01/19/2024, 08/2021, 08/18/2020, Additional history exists HIV Screening Completed 01/19/2024 Hepatitis C Screening Completed 01/19/2024 Influenza Vaccine Completed 01/19/2024, , 12/14/2021, Additional history exists HIB Vaccines Aged Out No longer eligi ble based on patient's age to complete this topic HPV Vaccines Aged Out No longer eligi ble based on patient's age to complete this topic Hepatitis A Vaccines Aged Out No long er eligible based on patient's age to complete this topic Hepatitis B Vaccines Aged Out No long er eligible based on patient's age to complete this topic IPV Vaccines Aged Out No longer eligi ble based on patient's age to complete this topic Meningococcal Vaccine Aged Out No alejandro radha eligible based on patient's age to complete this topic RSV under 20 months Aged Out No longe r eligible based on patient's age to complete this topic Rotavirus Vaccines Aged Out No longer eligible based on patient's age to complete this topic Procedures Procedure Name Priority Date/Time Associated Diagnosis Comments POCT GLYCATED HEMOGLOBIN, TOTAL Routine 06/25/2024 3:44 PM EDT Type 2 diabetes mellitus without complication, without long-term current use of insulin ([facility]) POCT GLUCOSE Routine 06/25/2024 3:39 PM EDT Type 2 diabetes mellitus without complication, without long-term current use of insulin ([facility]) POCT INFLUENZA B (ID NOW RAPID MOLECULAR) Routine 06/03/2024 4:26 PM EDT Sore throat POCT INFLUENZA A (ID NOW RAPID MOLECULAR) Routine 06/03/2024 4:26 PM EDT Sore throat POCT RAPID STREP A Routine 06/03/2024 4: 26 PM EDT Sore throat POCT RAPID COVID ANTIGEN Routine 06/03/2024 4:26 PM EDT Sore throat ALBUMIN, RANDOM URINE W/CREATININE Routine 01/19/2024 11:45 AM EDT Type 2 diabetes mellitus without complication, without long-term current use of insulin (CMS/HCC) HEPATITIS C AB W/REFL TO HCV RNA, QN, PCR Routine 01/19/2024 11:39 AM EDT Screening examination for STI HIV 1/2 ANTIGEN/ANTIBODY, FOURTH GENERATION W/RFL Routine 01/19/2024 11:39 AM EDT Screening examination for STI LIPID PANEL, STANDARD Routine 12/14/2021 10:34 AM EDT MAMMOGRAM GENERIC Routine 05/02/2021 3:0 5 PM EST from Last 3 Months or Most Recently Relevant to Health Maintenance Results * POCT HGB A1C (06/25/2024 3:44 PM EDT) Hemoglobin A1C 5.8 4.0 - 6.0 % QC Media Lot # [id number] Lot# Expiration Date [id number] Blood 06/25/2024 3:44 PM EDT us Henri Patrick MD POINT OF CARE TEST ENTER/EDIT OR DERABLES Final Result * (ABNORMAL) POCT Glucose (06/25/2024 3:39 PM EDT) Glucose Blood, POC 216(A) 60 - 200 mg/dL QC Media Lot # [id number] Lot# Expiration Date [id number] Blood Capillary blood specimen / Unknown 06/25/2024 3:39 PM EDT Henri Patrick MD POINT OF CARE TEST ENTER/EDIT OR DERABLES Final Result * Influenza B (ID NOW Rapid Molecular) (06/03/2024 4:26 PM EDT) Pathologist [facility] Influenza B Negative Negative, Indeterminate [facility] Swab 06/03/2024 4:26 PM EDT Mindi Oliveros DO POINT OF CARE TEST ENTER/SID T ORDERABLES Final Result Performing Organization Address [facility] Co de Phone Number [facility] [address] [place] [phone] * Influenza A (ID NOW Rapid Molecular) (06/03/2024 4:26 PM EDT) [facility] Influenza A Negative Negative, Indeterminate [facility] Swab 06/03/2024 4:26 PM EDT Mindi Oliveros DO POINT OF CARE TEST ENTER/SID T ORDERABLES Final Result Performing Organization Address [facility]/ZIP Co de Phone Number [facility] [address] [place] [address] [phone] * POCT Rapid COVID Ag (06/03/2024 4:26 PM EDT) Pathologist [facility] Rapid COVID Ag Negative [facility] Swab 06/03/2024 4:26 PM EDT Mindi Oliveros DO POINT OF CARE TEST ENTER/SID T ORDERABLES Final Result Performing Organization Address [facility]/ZIP Co de Phone Number [facility] [address] [place] [phone] * POCT rapid strep A manually resulted (06/03/2024 4:26 PM EDT) Rapid Strep A Screen Negative Negative, None Detected [facility] Swab 06/03/2024 4:26 PM EDT Mindi Oliveros DO POINT OF CARE TEST ENTER/SID T ORDERABLES Final Result Performing Organization Address [facility] de Phone Number [facility] [address] [place] [address] [phone] * Albumin, Random Urine W/Creatinine (01/19/2024 11:45 AM EDT) Creatinine, Urine 210.95 mg/dL [facility] Microalbumin Urine 31.0 mg/L [facility] Microalbum Creatinine Ratio Ur 14.6 <30 ug/mg cr [facility] Comment:Albumin/Creatinine R atio Reference Ranges: Normal: < 30 ug/mg creatinine Microalbuminuria: 30 - 300 ug/mg creatinineClinical Albuminuria: > 300 ug/mg creatinine Urine (Urine, Random) 01/19/2024 11:45 AM EDT 01/19/2024 1:25 PM EDT Minnie Graff MD LAB URINE ORDERABLES Final Res ult Performing Organization Address [facility] Co de Phone Number [facility] [address] [place] [phone] * Hepatitis C Antibody with Reflex to HCV, RNA, Quantitative, Real-Time PCR (01/19/2024 11:39 AM EDT) Pathologist [facility] Hepatitis C Antibody Nonreactive Nonreactive [facility] Comment:Antibodies to HCV no t detected; does not exclude early acuteHCV infection. Blood Venous blood specimen / Unknown 01/19/2024 11:39 AM EDT 01/19/2024 1:25 PM EDT Minnie Graff MD LAB BLOOD ORDERABLES Final Res ult Performing Organization Address [facility] Co de Phone Number [facility] [address] [place] [phone] * HIV-1/2 Antigen and Antibodies, Fourth Generation, with Reflexes (01/19/2024 11:39 AM EDT) HIV AB/AG Nonreactive Nonreactive [facility] Comment:HIV-1 p24 Ag and/or HIV-1/HIV-2 Ab not detected.A test result that is nonreactive does not exclude thepossibility of exposure to or infection with HIV-1 and/orHIV-2. Nonreactive results in this assay for individualswith prior exposure to HIV-1 and/or HIV-2 may be due toantigen and antibody levels that are below the limit ofdetection of this assay.The [employer] HIV Ag/Ab Combo assay result andsupplemental assay results should be interpreted inconjunction with the patient's clinical presentation,history and other laboratory results. If the results areinconsistent with clinical evidence, additional testing issuggested to confirm the result. Blood Venous blood specimen / Unknown 01/19/2024 11:39 AM EDT 01/19/2024 1:42 PM EDT Minnie Graff MD LAB BLOOD ORDERABLES Final Res ult Performing Organization Address [facility] Co de Phone Number [facility] [address] [place] [address] [phone] * (ABNORMAL) LIPID PANEL, STANDARD (12/14/2021 10:34 AM EDT) Chol/HDLC Ratio 2.9 <5.0 (calc) [facility] Cholesterol, Total 126 <200 mg/dL [facility] HDL Cholesterol 44(L) > OR = 50 mg/dL [facility] LDL Cholesterol 68 mg/dL (calc) [facility] Comment: Reference range: <100 ?? Desirable range <100 mg/dL for primary prevention; ?? <70 mg/dL for patients with CHD or diabetic patients ?? with > or = 2 CHD risk factors. ?? LDL-C is now calculated using the Frankie ?? calculation, which is a validated novel method providing ?? better accuracy than the Friedewald equation in the ?? estimation of LDL-C. ?? Edi BECK et al. BOB. 2013;310(19): 2490-1994 ?? (http://Tailored.Meograph/faq/MUI715) Non-HDL Cholesterol 82 <130 mg/dL (calc) [facility] Comment: For patients with diabetes plus 1 major ASCVD risk ?? factor, treating to a non-HDL-C goal of <100 mg/dL ?? (LDL-C of <70 mg/dL) is considered a therapeutic ?? option. Triglycerides 65 <150 mg/dL [facility] 12/14/2021 10:3 4 AM EDT us Henri Patrick MD LAB BLOOD ORDERABLES Final Resul t [facility] Replaced by [facility] [address] * Mammography Report 1 (05/02/2021 3:05 PM EST) Anatomical Region Laterality Modality Breast Bilateral Mammography 05/02/2021 3:05 PM EST Narrative 05/03/2021 2:59 PM EST Refer to the Notes tab for result details [facility] Procedure: Mammography Report 1 Procedure Note Provider, MD Juliana - 06/16/2022 Refer to the Notes tab for result details [facility] Procedure: Mammography Report 1 us Henri Patrick MD IMG BI PROCEDURES Final Result from Last 3 Months or Most Recently Relevant to Health Maintenance Insurance [address] [address] STANDARD MEDICARE Care Teams Film Reader Relationship Specialty Start Date End Date Name, MD Henri [address] [place] [phone] PCP - General Family Medicine 04/04/15
--- OUTSIDE RECORDS SUMMARY | 2024-06-28 13:01 | XMS_ITS | Encounter Summary ---
Author Organization [email or web address] Address [address] [facility] [address] [place] [address] Care Team Providers Care Electrical Logger Name Role Phone Name, Henri KEYES Primary Care Provider [phone] Encounter Details Date Type Department Care Team (Latest Contact Info) Description 06/25/2024 Travel Social History Tobacco Use Types Packs/Day Years [...] 10/13/2024 3:45 PM EDT Office Visit [facility] [address] [place] [phone] Name, MD Henri [address] [place] [phone] documented as of this encounter Visit Diagnoses Not on filedocumented in this encounter Additional Health Concerns Assessment Noted Time PHQ-9 Depression Total Score: 17 024 10:47 AM EST documented as of this encounter Care Teams Electrical Logger Relationship Specialty Start Date End Date Name, MD Henri [address] [place] [phone] PCP - General Family Medicine 04/04/15 documented as of this encounter
--- OUTSIDE RECORDS SUMMARY | 2024-06-28 13:01 | XMS_ITS | Encounter Summary ---
Author Organization [employer] Address [address] [place] [address] Care Team Providers Care Garment Liner Name Role Phone Name, Henri KEYES Primary Care Provider [phone] Reason for Visit * Reason Comments Med Change Request Encounter Details Date Type Department Care Team ([facility] Contact Info) Description 03/26/2023 Refill [facility] [address] [place], [place] [phone] Mindi Oliveros DO [address] [place], [place] [phone] Social History Tobacco Use Types Packs/Day Years [...] Description 10/13/2024 3:45 PM EDT Office Visit [facility] [address] [place] [phone] Name, MD Henri [address] [place] [phone] documented as of this encounter Visit Diagnoses Not on filedocumented in this encounter Additional Health Concerns Assessment Noted Time PHQ-9 Depression Total Score: 21 023 1:40 PM EDT documented as of this encounter Care Teams Garment Liner Relationship Specialty Start Date End Date Name, MD Henri [address] [place] [phone] PCP - General Family Medicine 04/04/15 documented as of this encounter
[2024-06-28 13:07] LABS: MANUAL DIFF FLAG NO
[2024-06-28 13:17] LABS: Basophils Percent Auto 0.5 % (0-2); Eosinophils Absolute Auto 0.2 X10*3/uL (0.0-0.4); Eosinophils Percent Auto 2.2 % (0-4); Hematocrit 34.6 % (37.0-47.0); Hemoglobin 10.4 g/dl (12.0-16.0); Imm Gran Abs Auto 0.03 X10*3/uL (0.00-0.03); Imm Gran Pct Auto 0.4 % (0.0-0.4); Lymphocytes Absolute Auto 2.4 X10*3/uL (1.2-4.9); Lymphocytes Percent Auto 28.4 % (20-40); Mean Corpuscular HGB Conc 30.1 g/dl (31.0-35.0); Mean Corpuscular Hemoglobin 23.5 pg (27.0-33.0); Mean Corpuscular Volume 78.3 fL (80.0-98.0); Mean Platelet Volume 11.5 fL (9.4-12.3); Monocytes Absolute Auto 0.9 X10*3/uL (0.1-1.2); Monocytes Percent Auto 10.3 % (2-11); Neutrophils Absolute Auto 4.9 x10*3/uL (2.0-8.3); Neutrophils Percent Auto 58.2 % (45-73); Platelet Count 283 X10*3/uL (160-400); Red Blood Count 4.42 X10*6/uL (4.20-5.50); Red Cell Distribution Width 16.4 % (11.0-16.0); White Blood Count 8.4 X10*3/uL (4.8-10.8)
[2024-06-28 13:35] LABS: Anion Gap 12 (12-20); Blood Urea Nitrogen 14 mg/dL (9-16); Calcium 10.1 mg/dL (8.4-10.2); Carbon Dioxide 25 mmol/L (22-29); Chloride 109 mmol/L (96-108); Estimated Glomerular Filt Rate > 60; Glucose Random 94 mg/dL (60-115); Potassium 4.8 mmol/L (3.3-5.1); Sodium 141 mmol/L (135-145)
[2024-06-28 13:53] LABS: TSH reflex Free T4 0.73 uIU/mL (0.32-4.0)
== END 2024-06-28 10:53 | disposition home or self-care (01) ==
LOC: HO.HHCL 10:52
PROVIDERS: Visit Provider Internal Medicine Geriatric Medicine
DX: R40.0 Somnolence (principal)
CPT/HCPCS: 36415; 80048; 84443; 85025

== ENCOUNTER 2024-11-15 10:20 | Outpatient (AMB) | payer MEDICARE, MEDICAID, SELFPAY ==
--- NOTE | 2024-11-15 10:27 | A.OFFVIS_ITS ---
Vital Signs 11/15/24 10:30 Height 4 ft 7 in Intake Visit Reasons: OV - Discuss B/L Gel Injections Intake Note: Susana is a 64 year old female who presents today for a follow up of her bilateral knee OA. Patient has tried and failed previous cortisone injections, she is also diabetic with cortisone increasing her blood sugars. She would like to discuss bilateral knee gel injections. She is requesting a possible order for a cane if MD believes it would benefit her. Allergies No Known Allergies Allergy (Verified 11/14/23 11:24) HPI HPI OV - Discuss B/L Gel Injections: Details: Susana is a 64 year old female who presents today for a follow up of her bilateral knee OA. Patient has tried and failed previous cortisone injections, she is also diabetic with cortisone increasing her blood sugars. She would like to discuss bilateral knee gel injections. [facility] Medical History (Updated 11/15/24 @ 10:51 by Harsha Duarte MD) Nicotine dependence, cigarettes, uncomplicated Carpal tunnel syndrome of right wrist Depression Anxiety Diabetes Obesity Rotator cuff impingement syndrome of right shoulder Primary osteoarthritis of right knee History of anemia History of asthma History of vitamin D deficiency History of fibromyalgia Surgical History History of carpal tunnel surgery of right wrist History of endoscopy History of hysteroscopy History of colonoscopy History of gastric bypass History of section Family History Mother No problems noted. Father No problems noted. Social History Alcohol intake: never Patient Tobacco Use Status: Current everyday Tobacco user Tobacco use type: Cigarette Years Smoked: (onset 17yo, 1ppd x 45yrs, 40pyh) Current occupational status: disabled Current occupation: right handed Physical Exam Const General: no acute distress and alert Orientation/consciousness: patient oriented x3 Neuro General: patient oriented x3 Extrem Other: TTP medial compartment bilateral knee. No effusion. Assessment & Plan Assessment & Plan (1) Bilateral primary osteoarthritis of knee: Code(s): M17.0 - Bilateral primary osteoarthritis of knee Category: Medical Plan: I recommend viscosupplementation. Coding Level of Care Code Est Pt Level 3 (46570) Diagnoses Bilateral primary osteoarthritis of knee M17.0
--- OUTSIDE RECORDS SUMMARY | 2024-11-15 11:30 | XMS_ITS | Encounter Summary ---
Author Organization [employer] Address [address] [place] [address] Care Team Providers Care Head Boys Tennis Coach Name Role Phone Name, Henri KEYES Primary Care Provider [phone] Reason for Visit * Reason Comments Med Refill Encounter Details Date Type Department Care Team ([facility] Contact Info) Description 08/18/2022 Refill [facility] [address], [place] [id number] Name, MD Henri [address] [place] [address] Fibromyalgia; Osteoarthritis of knee, unspecified laterality, unspecified [...] PM EDT documented as of this encounter Functional Status * Over the past 2 weeks, how often have you been bothered by any of the following problems? Question Answer Date of Assessment Author Patient Health Questionnaire-2 Score 6 07/24 1:40 PM Elaine Valencia * If you checked off any problems on this questionnaire so far, Question Answer Date of Assessment Author How difficult have these problems made it for you to do your work, take care of things at home, or get along with other people? Extremely difficult 08/20/2022 1:40 PM Nicole Valencia * Over the past 2 weeks, how often have you been bothered by any of the following problems? Question Answer Date of Assessment Author Little interest or pleasure in doing things Nearly every day 08/20/2022 1:40 PM Elaine Valencia Feeling down, depressed, or hopeless Nearly every day 08/20/2022 1:40 PM Nicole Valencia Trouble falling or staying asleep, or sleeping too much More than half the days 08/20/2022 1:40 PM Elaine Valencia Feeling tired or having little energy Nearly every day 08/20/2022 1:40 PM Nicole Valencia Poor appetite or overeating Nearly every day 08/20/2022 1:40 PM Nicole Valencia Feeling bad about yourself - or that you are a failure or have let yourself or your family down Nearly every day 08/20/2022 1:40 PM Nicole Valencia Trouble concentrating on things, such as reading the newspaper or watching television Nearly every day 08/20/2022 1:40 PM Nicole Valencia Moving or speaking so slowly that other people could have noticed? Or the opposite - being so fidgety or restless that you have been moving around a lot more than usual. Not at all 08/20/2022 1:40 PM Nicole Valencia Thoughts that you would be better off or hurting yourself in some way Several days 08/20/2022 1:40 PM Nicole Valencia Patient Health Questionnaire-9 Score 21 08/20/2022 1:40 PM Salina Valencia documented as of this encounter Miscellaneous Notes [...] Care Team (Late st Contact Info) Description 12/27/2024 1:00 PM EDT Office Visit [facility] [address], [place] [phone] Sonia Washington, OD [address] [place] [address] 01/18/2025 11:15 AM EDT Office Visit [facility] [address] [place] [address] Name, MD Henri [address] [place] [address] documented as of this encounter Visit Diagnoses Diagnosis Fibromyalgia Unspecified myalgia and myositis Osteoarthritis of knee, unspecified laterality, unspecified osteoarthritis type documented in this encounter Care Teams Head Boys Tennis Coach Relationship Specialty Start Date End Date Name, MD Henri [address], [place] [phone] PCP - General Family Medicine 04/04/15 documented as of this encounter
--- OUTSIDE RECORDS SUMMARY | 2024-11-15 11:30 | XMS_ITS | Clinical Summary ---
Author Organization [facility] Address [address] [place] [phone] Phone Care Team Providers Care Service Loss Control Consultant Name Role Phone Pcp, Unknown Primary Care Provider Unavailabl e Allergies No known active allergies Medications No known medications Social History Tobacco Use Types Packs/Day Years Used Date Smoking Tobacco: Some Days Cigarettes Smokeless Tobacco: Never Tobacco Cessation:Ready to Q uit: Not Asked Alcohol Use Standard Drinks/Week Comments Not Currently 0 (1 standard drink = 0.6 oz pur e alcohol) Education Answer Date Recorded Are you interested in more education? Not on ed e 07/22/2023 Are you concerned about learning? Not on file 07/22/2023 No 07/22/2023 No 07/22/2023 Digital Access Answer Date Recorded No 07/22/2023 No 07/22/2023 Reliable internet access at home? Not on file 07/22/2023 Device with a working camera? Not on file Intimate Partner Violence Answer Date R ecorded Are you denied basic needs s uch as food, clothing, or medical care? No 07/22/2023 In the past 12 months have y ou been in a relationship with a person who hurts, threatens, or tries to control you? No 07/22/2023 Are you denied basic needs s uch as food, clothing, or medical care? No 07/22/2023 In the past 12 months have y ou been in a relationship with a person who hurts, threatens, or tries to control you? No 07/22/2023 Comments No Sex and Gender Information Value Date Recorded Sex Assigned at Female 07/22/2023 6:10 PM EDT Legal Sex Female 5:56 PM EDT Gender Identity Female 07/22/2023 6:10 PM EDT Sexual Orientation Not on file Last Filed Vital Signs Vital Sign Reading Time Taken Comments Blood Pressure 116/71 07/23/2023 12:45 AM EDT Pulse 70 07/23/2023 12:45 AM EDT Temperature 36.7 C (98.1 F) 07/23/2023 12:45 AM EDT Respiratory Rate 18 07/23/2023 12:45 AM EDT Oxygen Saturation 95% 07/23/2023 12:45 AM EDT Inhaled Oxygen Concentration - - Weight 83.9 kg (185 lb) 07/22/2023 6:08 PM EDT Height 139.7 cm (4' 7 ) 07/22/2023 6:08 PM EDT Body Mass Index 43 07/22/2023 6:08 PM EDT Plan of Treatment Not on file Medical Devices Not on file Insurance MEDICARE PART A & B [facility] Care Teams Service Loss Control Consultant Relationship Specialty Start Date End Date Pcp, Unknown PCP - General 07/22/23 Additional Source Comments The information contained in this document represents components of the legal health record. It is not the complete legal health record.[facility]
== END 2024-11-15 10:44 | disposition home or self-care (01) ==
LOC: HO.HOS 10:20
PROVIDERS: PCP Internal Medicine Geriatric Medicine; Visit Provider Orthopaedic Surgery
DX: M17.0 Bilateral primary osteoarthritis of knee (principal)
CPT/HCPCS: 99213

== ENCOUNTER → 2024-11-15 10:20 | Outpatient (BNVA) | payer MEDICARE, MEDICAID, SELFPAY | PROVIDERS: PCP Internal Medicine Geriatric Medicine; Visit Provider Orthopaedic Surgery | DX: M17.0 Bilateral primary osteoarthritis of knee (principal) | CPT/HCPCS: 99212 ==

== ENCOUNTER 2025-01-18 12:00 | Outpatient (REF) | payer MEDICARE, MEDICAID, SELFPAY ==
--- OUTSIDE RECORDS SUMMARY | 2025-01-18 11:15 | XMS_ITS | Encounter Summary ---
Author Organization [employer] Address [address] [facility] 7t [place] [address] Care Team Providers Care Trencher Driver Name Role Phone Henri Patrick MD Primary Care Provider [phone] Reason for Referral * Medications - Closed Specialty Diagnoses / Procedures Referred By Sheila t Referred To Contact Diagnoses Moderate persistent asthma without complication Henir Patrick MD [address] [place] [address] Phone: tel: fax: Referral ID Status Reason Start Date Expiration Date Visits Re quested Visits Authorized [id number] Closed 1 1 * Consultation (Routine) - Authorized Specialty Diagnoses / Procedures Referred By Contkaryna t Referred To Contact Gastroenterology Diagnoses Encounter for screening for malignant neoplasm of colon Iron deficiency anemia, unspecified iron deficiency anemia type Henri Patrick MD [address] [place] [address] Phone: tel: fax: [facility] G[facility]enterology [address] [place] [address] Drive, 3rd [place] [address] Phone: tel: fax: Referral ID Status Reason Start Date Expiration Date Visits Requested Visits Authorized [id number] Authorized Specialty Services Required 01/18/2026 1 1 * Imaging (Routine) - Authorized Specialty Diagnoses / Procedures Referred By Contac t Referred To Contact Radiology Diagnoses Encounter for screening for malignant neoplasm of colon Procedures BI Mammogram Screening Tomosynthesis Bilateral Henri Patrick MD [address] [place] [address] Phone: tel: fax: [address] Phone: tel: fax: Referral ID Status Reason Start Date Expiration Date V isits Requested Visits Authorized [id number] Authorized 01/18/2025 01/18/2026 1 1 Reason for Visit * Reason Comments Follow-up Encounter Details Date Type Department Care Team (Late st Contact Info) Description 01/18/2025 11:15 AM EDT Office Visit [facility] [address] [place] [address] Henri Patrick MD [address] [place] [phone] Type 2 diabetes mellitus without complication, without long-term current use of insulin (HCC) (Primary Dx); Severe obesity (BMI 35.0-39.9) with comorbidity (CMS/HCC) (HCC); Migraine without aura and without status migrainosus, not intractable; Moderate persistent asthma without complication; Tobacco dependence; Encounter for screening for malignant neoplasm of breast, unspecified screening modality; Encounter for screening for malignant neoplasm of colon; Iron deficiency anemia, unspecified iron deficiency anemia type; Encounter for immunization Social History Tobacco Use Types Packs/Day Years Used Date Smoking Tobacco: Every Day Cigarettes Passive Smoke Exposure: Never Smokeless Tobacco: Never Tobacco Cessation:Ready to Q uit: Not Asked Alcohol Use Standard Drinks/Week Comments Never 0 (1 standard drink = 0.6 oz pur e alcohol) Depression Answer Date Recorded Patient Health Questionnaire-9 Score 18 01/18/2025 Patient Health Questionnaire-9 Score 18 01/18/2025 Last PHQ-9: Questionnaire Data Not on file 1 Housing Stability Answer Date Recorded What is your housing situation today? I have janie jeong 01/18/[address] you li ve. Do you have problems with any of the following? None of the above 01/18/2025 Food Insecurity Answer Date Recorded Within the past 12 months, y ou worried that your food would run out before you got money to buy more: Never True 01/18/2025 Within the past 12 months,th e food you bought just didn't last and you didn't have enough money to get more: Never True Transportation Answer Date Recorded In the past 12 months, has l ack of transportation kept you from medical appts, meetings, work or from getting things needed for daily living? No 01/18/2025 Utilities Answer Date Recorded In the past 12 months, has t he electric, gas, oil or water company threatened to shut off services in your home? No 01/18/2025 Depression Answer Date Recorded Patient Health Questionnaire-2 Score 5 01/18/2025 Internet Access Answer Date Recorded Internet Access Q1 Yes 01/18/2025 Internet Access Q2 Not on file 01/18/2025 Comments Unknown Sex and Gender Information Value Date Recorded Sex Assigned at Female 01/21/2022 10:18 AM EDT Legal Sex Female 10:18 AM EDT Gender Identity Female 01/21/2022 10:18 AM EDT Sexual Orientation Choose not to disclose 2021 10:18 AM EDT documented as of this encounter Last Filed Vital Signs Vital Sign Reading Time Taken Comments Blood Pressure 146/78 01/18/2025 11:21 AM EDT Pulse 75 01/18/2025 11:21 AM EDT Temperature 36.1 C (96.9 F) 01/18/2025 11:21 AM EDT Respiratory Rate 14 01/18/2025 11:21 AM EDT Oxygen Saturation 99% 01/18/2025 11:21 AM EDT Inhaled Oxygen Concentration - - Weight 81.9 kg (180 lb 9.6 oz) 01/18/2025 11:21 AM EDT Height 149.9 cm (4' 11 ) 01/18/2025 11:21 AM EDT Body Mass Index 36.48 01/18/2025 11:21 AM EDT documented in this encounter Functional Status * Over the past 2 weeks, how often have you been bothered by any of the following problems? Question Answer Date of Assessment Author Patient Health Questionnaire-2 Score 5 01/18/2025 11:22 AM EDT Maximus Delaney MA * Little interest or pleasure in doing things Answer Date of Assessment Author More than half the days 01/18/2025 11:22 AM Juno Foster MA * Feeling down, depressed, or hopeless Answer Date of Assessment Author Nearly every day 01/18/2025 11:22 AM Juno Henderson MA * Trouble falling or staying asleep, or sleeping too much Answer Date of Assessment Author Nearly every day 01/18/2025 11:22 AM Juno Henderson MA * Feeling tired or having little energy Answer Date of Assessment Author Nearly every day 01/18/2025 11:22 AM Juno Henderson MA * Poor appetite or overeating Answer Date of Assessment Author Not at all 01/18/2025 11:22 AM Juno Foster MA * Feeling bad about yourself - or that you are a failure or have let yourself or your family down Answer Date of Assessment Author More than half the days 01/18/2025 11:22 AM Juno Foster MA * Trouble concentrating on things, such as reading the newspaper or watching television Answer Date of Assessment Author More than half the days 01/18/2025 11:22 AM Juno Foster MA * Moving or speaking so slowly that other people could have noticed? Or the opposite - being so fidgety or restless that you have been moving around a lot more than usual. Answer Date of Assessment Author More than half the days 01/18/2025 11:22 AM Juno Foster MA * Thoughts that you would be better off or hurting yourself in some way Answer Date of Assessment Author Several days 01/18/2025 11:22 AM Juno Foster MA * Patient Health Questionnaire-9 Score Answer Date of Assessment Author 18 01/18/2025 11:22 AM Juno Foster MA * Over the last 2 weeks, how often have you been bothered by any of the following problems? Question Answer Date of Assessment Author Feeling nervous, anxious, or on edge 3 01/18/2025 11:22 AM EDT Maryam Delaney MA Not being able to stop or control worrying 3 01/18/2025 11:22 AM Maryam Foster MA Worrying too much about different things 3 01/18/2025 11:22 AM Maryam Foster MA Trouble relaxing 1 01/18/2025 11:22 AM TIGRET Juno Delaney MA Being so restless that it is hard to sit still 3 01/18/2025 11:22 AM TIGRET Maryam Delaney MA Becoming easily annoyed or irritable 3 01/18/2025 11:22 AM TIGRET Maryam Delaney MA Feeling afraid as if something awful might happen 3 01/18/2025 11:22 AM EDT Juno Alfaro MA JERONIMO-7 Total Score 19 01/18/2025 11:22 AM Juno Foster MA documented as of this encounter Progress Notes * Henri Patrick MD - 01/18/2025 11:15 AM EDT Images from the original note were not included. Subjective Patient ID: Susana Bird is a 64 y.o. female who presents for Follow-up. Patient comes for a follow-up visit. I have not seen her since June. She needs refills for most ofher medications. She ran out of her metoprolol and her blood pressure is a little high and she has noted more frequent migraines. Her blood sugar is well-controlled based on her hemoglobin A1c. She is tolerating Trulicity well. Unfortunately she has not lost much weight and she agreed to increase the dose of Trulicity. She continues smoking cigarettes and she is strongly encouraged to quit. She agreed with PCV 20 vaccination today and referral to low radiation CT scan of the chest for lung cancer screening. She is up-to-date with flu and COVID vaccines. She agreed with referral to mammogram and to GI for EGD and colonoscopy because of history of iron deficiency anemia after bariatric surgery and colon cancer screening. Review of Systems Constitutional: Negative for chills and fever. HENT: Negative for sore throat. Respiratory: Negative for cough, shortness of breath and wheezing. Cardiovascular: Negative for chest pain, palpitations and leg swelling. Gastrointestinal: Negative for abdominal pain. Objective Vitals: 01/18/25 1121 BP: (!) 146/78 BP Location: Left arm Patient Position: Sitting BP Cuff Size: Large adult Pulse: 75 Resp: 14 Temp: 96.9 ??F (36.1 ??C) TempSrc: Temporal SpO2: 99% Weight: 180 lb 9.6 oz (81.9 kg) Height: 4' 11 (1.499 m) Physical Exam Constitutional: Appearance: Normal appearance. Cardiovascular: Rate and Rhythm: Normal rate and regular rhythm. Heart sounds: No murmur heard. No gallop. Pulmonary: Effort: Pulmonary effort is normal. No respiratory distress. Breath sounds: Normal breath sounds. No wheezing. Musculoskeletal: Right lower leg: No edema. Left lower leg: No edema. Neurological: Mental Status: She is alert. Lab Results Component Value Date GLUCOSE 94 06/28/2024 NA 141 06/28/2024 K 4.8 06/28/2024 CO2 25 06/28/2024 CL 109 (H) 06/28/2024 BUN 14 06/28/2024 CREATININE 0.62 06/28/2024 Lab Results Component Value Date HGBA1C 5.9 (A) 01/18/2025 HGBA1C 5.8 06/25/2024 HGBA1C 5.8 01/19/2024 HGBA1C 6.0 05/27/2023 HGBA1C 5.9 11/15/2022 HGBA1C 5.8 (H) 12/14/2021 HGBA1C 5.7 (H) 01/17/2021 Assessment/Plan Diagnoses and all orders for this visit: Type 2 diabetes mellitus without complication, without long-term current use of insulin (HCC) Comments: Well-controlled based on hemoglobin A1c. I will increase her Trulicity to help patient lose more weight. Start losartan for renal protection. Start statin for prevention of cardiovascular disease Orders: - POCT Glucose - POCT Hgb A1c - Dulaglutide (Trulicity) 3 MG/0.5ML solution auto-injector; Inject 3 mg under the skin 1 (one) time per week. - Comprehensive Metabolic Panel; Future - Lipid Panel, Standard; Future - Albumin, Random Urine W/Creatinine; Future Severe obesity (BMI 35.0-39.9) with comorbidity (CMS/HCC) (HCC) Comments: See above. Orders: - Dulaglutide (Trulicity) 3 MG/0.5ML solution auto-injector; Inject 3 mg under the skin 1 (one) time per week. Migraine without aura and without status migrainosus, not intractable Comments: Restart metoprolol for hypertension and migraine prevention Orders: - metoprolol succinate XL (Toprol-XL) 25 MG 24 hr tablet; TAKE 1 TABLET BY MOUTH EVERY MORNING Moderate persistent asthma without complication Comments: I refill her albuterol, start daily Arnuity for prevention, PCV 20 today, she is up-to-date with COVID and flu vaccines Orders: - albuterol 108 (90 Base) MCG/ACT inhaler; Inhale 2 puffs every 6 (six) hours if needed for wheezing. - albuterol (2.5 MG/3ML) 0.083% nebulizer solution; Take 3 mL (2.5 mg) by nebulization every 4 (four) hours if needed for wheezing. Tobacco dependence Comments: She is recommended to quit. Referral to the radiation CT scan of the chest. Encounter for screening for malignant neoplasm of breast, unspecified screening modality Comments: Referral to mammogram Encounter for screening for malignant neoplasm of colon Comments: Referral to GI for colonoscopy Orders: - BI Mammogram Screening Tomosynthesis Bilateral; Future - Referral to Gastroenterology; Future Iron deficiency anemia, unspecified iron deficiency anemia type Comments: Check blood work listed below. She is reluctant to use iron supplement because of GI side effects. We discussed iron rich foods she can eat. Orders: - CBC auto differential; Future - Iron And Total Iron Binding Capacity; Future - Ferritin; Future - Referral to Gastroenterology; Future Encounter for immunization - PCV-20 VACCINE 6 wks + Other orders - Diclofenac Sodium (Voltaren Arthritis Pain) 1 % gel; Apply thin layer to affected joint twice a day - atorvastatin (Lipitor) 20 MG tablet; Take 1 tablet (20 mg) by mouth Once per day. - losartan (Cozaar) 25 MG tablet; Take 1 tablet (25 mg) by mouth Once per day. - fluticasone (Flonase) 50 MCG/ACT nasal spray; Administer 2 sprays into each nostril Once per day.Shake gently. Before first use, prime pump. After use, clean tip and replace cap. - fluticasone furoate (Arnuity Ellipta) 100 MCG/ACT inhaler; Inhale 1 puff Once per day. Rinse mouth with water after use to reduce aftertaste and incidence of candidiasis. Do not swallow. Future Appointments Date Time Provider Department Center 02/28/2025 2:00 PM [facility] documented in this encounter Plan of Treatment Upcoming Encounters Date Type Department Care Team (Late st Contact Info) Description 02/28/2025 2:00 PM EST Office Visit [facility] [address] [place], [place] [phone] [place] Ivett [facility] [address] [place] [address] Scheduled Orders Name Type Priority Associated Diagnoses Orde r Schedule Iron And Total Iron Binding Capacity Lab Routine Iron deficiency anemia, unspecified iron deficiency anemia type Expected: 01/18/2025, Expires: 01/18/2026 Ferritin Lab Routine Iron deficiency anemia, unspecified iron deficiency anemia type Expected: 01/18/2025, Expires: 01/18/2026 Comprehensive Metabolic Panel Lab Routine Type 2 diabetes mellitus without complication, without long-term current use of insulin (HCC) Expected: 01/18/2025 (Approximate), Expires: 01/18/2026 Lipid Panel, Standard Lab Routine Type 2 diabetes mellitus without complication, without long-term current use of insulin (HCC) Expected: 01/18/2025 (Approximate), Expires: 01/18/2026 BI Mammogram Screening Tomosynthesis Bilateral Imaging Routine Encounter for screening for malignant neoplasm of colon Expected: 01/18/2025, Expires: 03/20/2026 Scheduled Referrals Name Type Priority Associated Diagnoses Order Schedule Referral to Gastroenterology Outpatient Referral Routine Encounter for screening for malignant neoplasm of colon Iron deficiency anemia, unspecified iron deficiency anemia type Expected: 01/18/2025 (Approximate), Expires: 01/18/2026 documented as of this encounter Procedures Procedure Name Priority Date/Time Associated Diagnosis Comments ALBUMIN, RANDOM URINE W/CREATININE Routine 01/18/2025 12:16 PM EDT Type 2 diabetes mellitus without complication, without long-term current use of insulin (HCC) CBC WITH AUTO DIFFERENTIAL Routine 01/18/2025 12:16 PM EDT Iron deficiency anemia, unspecified iron deficiency anemia type POCT GLYCATED HEMOGLOBIN, TOTAL Routine 01/18/2025 11:24 AM EDT Type 2 diabetes mellitus without complication, without long-term current use of insulin ([facility]) POCT GLUCOSE Routine 01/18/2025 11:22 AM EDT Type 2 diabetes mellitus without complication, without long-term current use of insulin ([facility]) documented in this encounter Results * Albumin, Random Urine W/Creatinine (01/18/2025 12:16 PM EDT) Creatinine, Urine 34.92 mg/dL [facility] Microalbumin Urine <5.0 mg/L [facility] Microalbum Creatinine Ratio Ur TNP <30 ug/mg cr [facility] Comment:Unable to calculate albumin/creatinine ratio due to lowmicroalbumin or creatinine result. Urine (Urine, Random) 01/18/2025 12:16 PM EDT 01/18/2025 12:54 PM EDT us Henri Patrick MD LAB URINE ORDERABLES Final Resul t [facility] [address] [place] [phone] * (ABNORMAL) CBC auto differential (01/18/2025 12:16 PM EDT) White Blood Count 8.9 4.8 - 10.8 X10*3/uL [facility] Red Blood Count 4.13(L) 4.20 - 5.50 X10*6/uL [facility] Hemoglobin 9.3(L) 12.0 - 16.0 g/dl [facility] Hematocrit 31.4(L) 37.0 - 47.0 % [facility] Mean Corpuscular Volume 76.0(L) 80.0 - 98.0 fL [facility] Mean Corpuscular Hemoglobin 22.5(L) 27.0 - 33.0 pg [facility] Mean Corpuscular HGB Conc 29.6(L) 31.0 - 35.0 g/dl [facility] Red Cell Distribution Width 16.8(H) 11.0 - 16.0 % [facility] Platelet Count 295 160 - 400 X10*3/uL [facility] Mean Platelet Volume 10.9 9.4 - 12.3 fL [facility] Neutrophils Percent Auto 67.2 45 - 73 % [facility] Imm Gran Pct Auto 0.2 0.0 - 0.4 % [facility] Lymphocytes Percent Auto 24.0 20 - 40 % [facility] Monocytes Percent Auto 7.1 2 - 11 % [facility] Eosinophils Percent Auto 1.1 0 - 4 % [facility] Basophils Percent Auto 0.4 0 - 2 % [facility] NRBC Pct Auto 0.0 0.0 - 0.2 /100WBC [facility] Neutrophils Absolute Auto 6.0 2.0 - 8.3 x10*3/uL [facility] Imm Gran Abs Auto 0.02 0.00 - 0.03 X10*3/uL [facility] Lymphocytes Absolute Auto 2.1 1.2 - 4.9 X10*3/uL [facility] Monocytes Absolute Auto 0.6 0.1 - 1.2 X10*3/uL [facility] Eosinophils Absolute Auto 0.1 0.0 - 0.4 X10*3/uL [facility] Basophils Absolute Auto 0.0 0.0 - 0.2 X10*3/uL [facility] NRBC Abs Auto 0.000 0.0 - 0.012 X10*3/uL [facility] Blood Venous blood specimen / Unknown 01/18/2025 12:16 PM EDT 01/18/2025 12:59 PM EDT us Henri Patrick MD LAB BLOOD ORDERABLES Final Resul t [facility] [address] [place] [address] [phone] * (ABNORMAL) POCT Hgb A1c (01/18/2025 11:24 AM EDT) Hemoglobin A1C 5.9(A) 4.0 - 5.7 % QC Media Lot # [id number] Lot# Expiration Date 41,626 Blood 01/18/2025 11:2 4 AM EDT us Henri Patrick MD POINT OF CARE TEST ENTER/EDIT OR DERABLES Final Result * POCT Glucose (01/18/2025 11:22 AM EDT) Glucose Blood, POC 106 60 - 200 mg/dL QC Media Lot # [id number] Lot# Expiration Date 31,126 Blood Capillary blood specimen / Unknown 01/18/2025 11:22 AM EDT us Henri Patrick MD POINT OF CARE TEST ENTER/EDIT OR DERABLES Final Result documented in this encounter Visit Diagnoses Diagnosis Type 2 diabetes mellitus without complication, without long-term current use of insulin (HCC)- Primary Severe obesity (BMI 35.0-39.9) with comorbidity (CMS/HCC) (HCC) Migraine without aura and without status migrainosus, not intractable Moderate persistent asthma without complication Tobacco dependence Tobacco use disorder Encounter for screening for malignant neoplasm of breast, unspecified screening modality Iron deficiency anemia, unspecified iron deficiency anemia type documented in this encounter Additional Health Concerns Assessment Noted Time PHQ-9 Depression Total Score: 18 025 11:22 AM EDT documented as of this encounter Care Teams Trencher Driver Relationship Specialty Start Date End Date Name, MD Henri [address] [place] [phone] PCP - General Family Medicine 04/04/15 documented as of this encounter
[2025-01-18 13:02] LABS: MANUAL DIFF FLAG NO
[2025-01-18 13:08] LABS: Hematocrit 31.4 % (37.0-47.0); Hemoglobin 9.3 g/dl (12.0-16.0); Imm Gran Abs Auto 0.02 X10*3/uL (0.00-0.03); Imm Gran Pct Auto 0.2 % (0.0-0.4); Lymphocytes Absolute Auto 2.1 X10*3/uL (1.2-4.9); Mean Corpuscular HGB Conc 29.6 g/dl (31.0-35.0); Mean Corpuscular Hemoglobin 22.5 pg (27.0-33.0); Mean Corpuscular Volume 76.0 fL (80.0-98.0); NRBC Abs Auto 0.000 X10*3/uL (0.0-0.012); NRBC Pct Auto 0.0 /100WBC (0.0-0.2); Platelet Count 295 X10*3/uL (160-400); Red Blood Count 4.13 X10*6/uL (4.20-5.50); White Blood Count 8.9 X10*3/uL (4.8-10.8)
--- OUTSIDE RECORDS SUMMARY | 2025-01-18 15:21 | XMS_ITS | Encounter Summary ---
Author Organization [employer] [facility] Address [address] [place] [address] 7t [place] [address] Care Team Providers Care Senior Oracle Pl Sql Developer Name Role Phone Name, Henri KEYES Primary Care Provider [phone] Encounter Details Date Type Department Care Team (Late st Contact Info) Description 04/30/2022 Orders Only [facility] MEDICINE [address] [place] [phone] Aminah Orona LPN Social History Tobacco Use [...] Description 02/28/2025 2:00 PM EST Office Visit [facility] MED[facility]INE [address] [place] [phone] [facility] [address] [place] [address] documented as of this encounter Visit Diagnoses Not on filedocumented in this encounter Care Teams Senior Oracle Pl Sql Developer Relationship Specialty Start Date End Date Name, MD Henri [address] [place] [phone] PCP - General Family Medicine 04/04/15 documented as of this encounter
--- OUTSIDE RECORDS SUMMARY | 2025-01-18 15:21 | XMS_ITS | Encounter Summary ---
Author Organization [employer] Address [address] [facility] 7t [place] [address] Care Team Providers Care Anode Rebuilder Name Role Phone Name, Henri KEYES Primary Care Provider [phone] Reason for Visit * Reason Onset Date Comments Med Refill 03/20/2023 Encounter Details Date Type Department Care Team ([facility] Contact Info) Description 03/20/2023 Telephone [facility] [address] [place] [address] Name, MD Henri [address] [place], [place] [phone] Med Refill Social History Tobacco Use Types [...] 50 MG tablet To be sent to: [facility]/pharmacy #[id number] documented in this encounter Plan of Treatment Upcoming Encounters Date Type Department Care Team (Late st Contact Info) Description 02/28/2025 2:00 PM EST Office Visit [facility] [address] [place] [address] [facility] [address] [place] [address] documented as of this encounter Visit Diagnoses Not on filedocumented in this encounter Additional Health Concerns Assessment Noted Time PHQ-9 Depression Total Score: 21 023 1:40 PM EDT documented as of this encounter Care Teams Anode Rebuilder Relationship Specialty Start Date End Date Name, MD Henri [address] [place] [address] PCP - General Family Medicine 04/04/15 documented as of this encounter
--- OUTSIDE RECORDS SUMMARY | 2025-01-18 15:21 | XMS_ITS | Encounter Summary ---
Author Organization [employer] Address [address] [facility] 7t [place] [address] Care Team Providers Care Parachute Manufacturing Supervisor Name Role Phone Name, Henri KEYES Primary Care Provider [phone] Reason for Visit * Reason Comments Med Refill Encounter Details Date Type Department Care Team ([facility] Contact Info) Description 08/24/2022 Refill [facility] [address] [place] [address] [phone] Name, MD Henri [address] [place] [phone] Social History Tobacco Use Types Packs/Day Years [...] Department Care Team (Late Contact Info) Description 02/28/2025 2:00 PM EST Office Visit [facility] MED[facility]INE [address] [place] [phone] [place] black[place], MANAGER ENERGY [address] [place] [address] documented as of this encounter Visit Diagnoses Not on filedocumented in this encounter Additional Health Concerns Assessment Noted Time PHQ-9 Depression Total Score: 21 023 1:40 PM EDT documented as of this encounter Care Teams Parachute Manufacturing Supervisor Relationship Specialty Start Date End Date Name, MD Henri [address] [place] [address] PCP - General Family Medicine 04/04/15 documented as of this encounter
--- OUTSIDE RECORDS SUMMARY | 2025-01-18 15:21 | XMS_ITS | Encounter Summary ---
Author Organization [employer] Address [address] [place] [address] Care Team Providers Care Well Puller Head Name Role Phone Name, Henri KEYES Primary Care Provider [phone] Reason for Visit * Reason Onset Date Comments Chart Prep 01/17/2025 Encounter Details Date Type Department Care Team ([facility] Contact Info) Description 01/17/2025 Telephone [facility] [address] [place], [place] [phone] Name, MD Henri [address] [place] [address] Chart Prep Social History Tobacco Use Types Packs/Day Years [...] encounter Miscellaneous Notes * Telephone Encounter - Rhonda Hill [place] - 01/17/2025 1:11 PM EDT Chart Prep Labs: done Images: done Referrals: complete sleep study in chart Vaccines due: PCV20 Screenings: colonoscopy, mammogram, pap smear, and eye examAlcohol/Substance Use Screening Overdue care gaps: A1c, Glucose, SBIRT, SDOH, PHQ-9, JERONIMO-7, Oral health screening, Disability screen, and Tobacco documented in this encounter Plan of Treatment Upcoming Encounters Date Type Department Care Team (Late st Contact Info) Description 02/28/2025 2:00 PM EST Office Visit [facility] [address] [place] [address] [facility] [address] [place] [address] documented as of this encounter Visit Diagnoses Not on filedocumented in this encounter Additional Health Concerns Assessment Noted Time PHQ-9 Depression Total Score: 17 024 10:47 AM EST documented as of this encounter Care Teams Well Puller Head Relationship Specialty Start Date End Date Name, MD Henri [address] [place] [address] PCP - General Family Medicine 04/04/15 documented as of this encounter
--- OUTSIDE RECORDS SUMMARY | 2025-01-18 15:21 | XMS_ITS | Encounter Summary ---
Author Organization [employer] Address [address] [facility] [address] [place] [address] Care Team Providers Care Defensive Secondary Coach Name Role Phone Name, Henri KEYES Primary Care Provider Reason for Visit * Reason Comments Med Change Request Encounter Details Date Type Department Care Team ([facility] Contact Info) Description 03/04/2022 Refill [facility] [address] [place], [place] [phone] Rose Choi MD [address] [place] [address] Wheezing Social History Tobacco Use Types Packs/Day [...] notes needed and will be faxed to Christopher [phone] * Telephone Encounter - Elina Orona RN [...] 2:00 PM EST Office Visit [facility] [address] [place] [address] TroyIvett FNP [address] [place] [address] documented as of this encounter Visit Diagnoses Diagnosis Wheezing documented in this encounter Care Teams Defensive Secondary Coach Relationship Specialty Start Date End Date Name, MD Henri [address] [place] [address] PCP - General Family Medicine 04/04/15 documented as of this encounter
--- OUTSIDE RECORDS SUMMARY | 2025-01-18 15:21 | XMS_ITS | Clinical Summary ---
Author Organization [employer] Address [address] [place] [address] [address] [place] [address] Care Team Providers Care Enrichment Specialist Name Role Phone Name, Henri KEYES Primary Care Provider [phone] Allergies Active Allergy Reactions Criticality Noted Date Comments Oxycodone-Acetaminophen 08/20/2023 Medications Respiratory Therapy Supplies (Nebulizer Mask Adult) miscIndications: Wheezing 1 each every 4 (four) hours if needed (asthma). 2 each 1 022 Active zolpidem (Ambien) 10 MG tablet TOME GRICELDA TABLETA TODOS LOS D AL ACOSTARSE CUANDO SEA NECESARIO 023 Active risperiDONE (RisperDAL) 2 MG tablet TOME GRICELDA TABLETA TODOS LOS D 023 Active prazosin (Minipress) 2 MG capsule TOME GRICELDA C PSULA TODOS LOS D AL ACOSTARSE 023 Active lidocaine (Xylocaine) 5 % ointment APPLY TO THE AFFECTED KNEE DAILY 50 g 023 Active sertraline (Zoloft) 50 MG tabletIndication s:Depression, recurrent (CMS/HCC) TOME 1 TABLETA POR V A ORAL TODOS LOS D Active SUMAtriptan (Imitrex) 25 MG tabletIndication s:Migraine without status migrainosus, not intractable, unspecified migraine type Take 25 mg by mouth. 024 Active zolpidem (Ambien) 10 MG tabletIndication s:Primary insomnia Take 1 tablet by mouth at bed time. 020 Active valACYclovir (Valtrex) 500 MG tabletIndication s:Herpes TAKE 1 TABLET BY MOUTH TWICE A DAY FOR 3 DAYS 6 tablet 5 Active gabapentin (Neurontin) 300 MG capsuleIndicatio ns:Fibromyalgia Take 1 capsule (300 mg) by mouth 3 times daily. 90 capsule 1 Active cetirizine (ZyrTEC) 10 MG tablet Take 1 tablet (10 mg) by mouth Once per day. 30 tablet 3 025 2025 Active pseudoephedrine (Sudafed) 30 MG tablet Take 1 tablet (30 mg) by mouth every 8 (eight) hours if needed for congestion for up to 5 days. 12 tablet Active meloxicam (Mobic) 7.5 MG tabletIndication s:Chronic pain of both knees Take 1 tablet (7.5 mg) by mouth Once per day. 90 tablet 3 025 2025 Active pantoprazole (Protonix) 40 MG EC tablet Take 1 tablet (40 mg) by mouth before breakfast. Do not crush, chew, or split. 30 tablet 11 2025 Active LORazepam (Ativan) 0.5 MG tablet TAKE ONE (1) TABLET BY MOUTH TWICE A DAY, NEEDED FOR EXTREME ANXIETY, TAKE SPARINGSLY Active acetaminophen (Tylenol Extra Strength) 500 MG tablet Take 1 tablet (500 mg) by mouth every 6 (six) hours if needed for mild pain. 120 tablet 2024 Active benztropine (Cogentin) 0.5 MG tablet TOME 1 TABLETA POR V A ORAL TODOS LOS D EN LA VERONICA XIOMY Active Dulaglutide (Trulicity) 3 MG/0.5ML solution auto-injectorInd ications:Type 2 diabetes mellitus without complication, without long-term current use of insulin ([facility]),Severe obesity (BMI 35.0-39.9) with comorbidity (CMS/HCC) ([facility]) Inject 3 mg under the skin 1 (one) time per week. 2 mL 11 2025 Active Diclofenac Sodium (Voltaren Arthritis Pain) 1 % gel Apply thin layer to affected joint twice a day 50 g 2 Active atorvastatin (Lipitor) 20 MG tablet Take 1 tablet (20 mg) by mouth Once per day. 30 tablet 11 025 2025 Active metoprolol succinate XL (Toprol-XL) 25 MG 24 hr tabletIndication s:Migraine without aura and without status migrainosus, not intractable TAKE 1 TABLET BY MOUTH EVERY MORNING 90 tablet 1 Active losartan (Cozaar) 25 MG tablet Take 1 tablet (25 mg) by mouth Once per day. 30 tablet 11 2025 Active fluticasone (Flonase) 50 MCG/ACT nasal spray Administer 2 sprays into each nostril Once per day. Shake gently. Before first use, prime pump. After use, clean tip and replace cap. 16 g 3 2025 Active albuterol 108 (90 Base) MCG/ACT inhalerIndicatio ns:Moderate persistent asthma without complication Inhale 2 puffs every 6 (six) hours if needed for wheezing. 18 g 6 Active albuterol (2.5 MG/3ML) 0.083% nebulizer solutionIndicati ons:Moderate persistent asthma without complication Take 3 mL (2.5 mg) by nebulization every 4 (four) hours if needed for wheezing. 75 mL 2025 Active fluticasone furoate (Arnuity Ellipta) 100 MCG/ACT inhaler Inhale 1 puff Once per day. Rinse mouth with water after use to reduce aftertaste and incidence of candidiasis. Do not swallow. 1 each 2025 Active Varenicline Tartrate, Starter, (Chantix Starting Month ) 0.5 MG X 11 & 1 MG X 42 tablet therapy pack Take 0.5 mg by mouth Once daily for 3 days, THEN 0.5 mg 2 times daily for 4 days, THEN 1 mg 2 times daily for 21 days. 1 each 023 2024 Discontinued(I neffective) metoprolol succinate XL (Toprol-XL) 25 MG 24 hr tabletIndication s:Palpitations TAKE 1 TABLET BY MOUTH EVERY MORNING 90 tablet 1 024 2024 Discontinued(R eorder (will not trigger notification to Pharmacy)) fluticasone (Flonase) 50 MCG/ACT nasal spray Administer 2 sprays into each nostril Once per day. Shake gently. Before first use, prime pump. After use, clean tip and replace cap. 16 g 3 2024 Discontinued(R eorder (will not trigger notification to Pharmacy)) budesonide (Pulmicort Flexhaler) 180 MCG/ACT inhalerIndicatio ns:Moderate persistent asthma without complication 1 each 2024 Discontinued(T herapy completed) albuterol 108 (90 Base) MCG/ACT inhalerIndicatio ns:Moderate persistent asthma without complication Inhale 2 puffs every 6 (six) hours if needed for wheezing. 18 g 6 2024 Discontinued(R eorder (will not trigger notification to Pharmacy)) albuterol (2.5 MG/3ML) 0.083% nebulizer solutionIndicati ons:Moderate persistent asthma without complication Take 3 mL (2.5 mg) by nebulization every 4 (four) hours if needed for wheezing. 75 mL 3 2024 Discontinued(R eorder (will not trigger notification to Pharmacy)) Dulaglutide (Trulicity) 1.5 MG/0.5ML solution auto-injectorInd ications:Type 2 diabetes mellitus without complication, without long-term current use of insulin ([facility]),Primary osteoarthritis involving multiple joints,Chronic pain of both knees,Severe obesity (BMI 35.0-39.9) with comorbidity ([facility]) ([facility]) Inject 1.5 mg as directed 1 (one) time per week. INJECT 1.5 MG SUBCUTANEOUSLY ONCE A WEEK 2 mL 2 2024 Discontinued(D ose adjustment) amoxicillin-clav ulanate (Augmentin) 875-125 MG tablet Take 1 tablet by mouth 2 times daily for 7 days. 14 tablet 2024 Discontinued(T herapy completed) albuterol (2.5 MG/3ML) 0.083% nebulizer solutionIndicati ons:Moderate persistent asthma without complication Take 3 mL (2.5 mg) by nebulization every 4 (four) hours if needed for wheezing. 75 mL 025 2024 Discontinued(R eorder (will not trigger notification to Pharmacy)) Diclofenac Sodium 1 % gel PLEASE SEE ATTACHED FOR DETAILED DIRECTIONS 025 2024 Discontinued(D uplicate order (will not trigger notification to Pharmacy)) Active Problems Problem Noted Date Diagnosed Date Subacute pansinusitis 01/03/2025 Assessment & Plan (01/03/2025 2:10 PM EDT): Negative viral test today. Rest (sleep at least 8 hours a night). Hydrate with plenty of water (avoid caffeine and alcohol). Use saline nose drops to loosen mucus + Flonase twice daily x 7 days Take Acetaminophen (Tylenol )/Ibuprofen as needed to reduce fever, headache, body aches or discomfort Augmentin x 7 days Gargle with salt water and use throat sprays/lozenges for throat pain. Use heated, humidified air. If you do not have a humidifier, take hot showers. Cover coughs and sneezes using the crook of your elbow. If you have a fever, stay home and away from others (self isolation) until fever-free for 72 hours (temperature should be less than 100 F without medication). Depression, recurrent 01/19/2024 Diabetes due to undrl condition w oth diabetic n euro comp 01/19/2024 Severe obesity (BMI 35.0-39.9) with comorbidity ([facility]) 08/15/2023 Anemia 08/08/2023 Anxiety with depression 08/07/2023 [...] Encounters Date Type Department Care Team Description 01/18/2025 11:15 AM EDT Office Visit [facility] [address] [place] [phone] Henri Patrick MD Type 2 diabetes mellitus without complication, without [...] iron deficiency anemia type; Encounter for immunization 01/18/2025 Travel 01/17/2025 Telephone [facility] [address] [place] [phone] Henri Patrick MD Chart Prep 01/03/2025 2:00 PM EDT Office Visit [facility] [address] [place] [phone] Xiomy Schulz MD Subacute pansinusitis (Primary Dx); Moderate persistent asthma without complication; Cough, unspecified type 01/03/2025 Travel 12/27/2024 1:00 PM EDT Office Visit [facility] [address] [place] [address] Sonia Washington, OD Photopsia (Primary Dx); Presbyopia 12/27/2024 Travel 10/29/2024 Telephone [facility] [address] [place] [address] Juno Delaney [place] DECEMBER RECALLS 10/19/2024 10:40 AM EDT Office Visit [facility] [address] [place] [address] Sonia Washington, OD Diabetes type 2, no ocular involvement (CMS/HCC) (Primary Dx) 10/19/2024 Telephone [facility] [address], [place] [phone] Henri Patrick MD Med Refill (Pt requesting refills on all her medications that are due. ) 10/19/2024 Travel from Last 3 Months Immunizations Immunization Administration Dates Next Due Influenza Injectable Quadriv alant Preservative Free IIV4 MDCK 01/16/2021 Influenza injectable quadriv alent IIV4 with preservative 01/01/2019,02/05/2017,12/19/2015 Influenza injectable quadriv alent preservative free 01/29/2023,12/14/2021,03/26/2018 Influenza, IIV3, injectable 01/21/2014 Influenza, Recombinant, inje ctable, preservative free 11/21/2024 Influenza, seasonal, injecta ble, preservative free 01/19/2024 Pfizer Covid-19 Vaccine 12+ 01/19/2024 Pneumococcal Conjugate PCV 20 01/18/2025 Pneumococcal Polysaccharide PPSV23 04/20/2015 RSV Bivalent 11/21/2024 TD (adult), 2 Lf tetanus tox oid, preservative free, adsorbed 02/05/2017 Tdap 11/21/2024,11/04/2014 Zoster, Recombinant 12/29/2024,09/30/2023 Social History Tobacco Use Types Packs/Day Years [...] Mass Index 36.48 01/18/2025 11:21 AM EDT Plan of Treatment Upcoming Encounters Date Type Department Care Team (Late st Contact Info) Description 02/28/2025 2:00 PM EST Office Visit [facility] [address] [place] [address] [place], [place], SENIOR EDITOR [address] [place] [address] Health Maintenance Due Date Last Done Comments CT Colonography 1962 Colonoscopy 1962 Colorectal Cancer Screening 1962 FIT DNA/Cologuard 1962 FIT 1962 FOBT 1962 Sigmoidoscopy 1962 Eye Exam 02/02/1972 Pap Smear 1983 Cervical Cancer Screening 02/02/1992 HPV/Cotest 02/02/1992 Lipid Panel 12/14/2022 12/14/2021, 01/17/2021 Mammogram 05/02/2023 05/02/2021, 05/27/2018 Diabetes: Foot Exam 05/26/2024 05/27/2023, 05/27/2023, 05/27/2023, Additional history exists Depression Monitoring 07/19/2025 01/18/2025, 025 Diabetes: Hemoglobin A1C 07/19/2025 025, 06/25/2024, 01/19/2024, Additional history exists Alcohol/Substance Use Screening 01/18/2026 01/18/2025 Diabetes: Urine Protein Screening 01/18/2026 01/18/2025, 01/19/2024, 01/15/2023, Additional history exists Disability Screening 01/18/2026 01/18/2025 SDOH Screening 01/18/2026 01/18/2025 Tobacco Screening 01/18/2026 01/18/2025 DTaP/Tdap/Td Vaccines (4 - Td or Tdap) 11/21/2034 11/21/2024, 02/05/2017, 11/04/2014 COVID-19 Vaccine Completed 01/19/2024, 08/2021, 08/18/2020, Additional history exists HIV Screening Completed 01/19/2024 Hepatitis C Screening Completed 01/19/2024 Influenza Vaccine Completed 11/21/2024, , 01/29/2023, Additional history exists RSV Patients and Patients Aged 60 years or older Completed 11/21/2024 Zoster Vaccines Completed 12/29/2024, 09/30/2023 Pneumococcal Vaccine: 50+ Years Completed 01/18/2025, 04/20/2015 HIB Vaccines Aged Out No longer eligi [...] patient's age to complete this topic Meningococcal B Vaccine Aged Out No l onger eligible based on patient's age to complete [...] without long-term current use of insulin (HCC) POCT GLUCOSE Routine 01/18/2025 11:22 AM EDT Type 2 diabetes mellitus without complication, without long-term current use of insulin (HCC) POCT INFLUENZA B (ID NOW RAPID MOLECULAR) Routine 01/03/2025 1:56 PM EDT Cough, unspecified type POCT INFLUENZA A (ID NOW RAPID MOLECULAR) Routine 01/03/2025 1:55 PM EDT Cough, unspecified type POCT COVID-19 AG JAUREGUI ID NOW Routine 01/03/2025 1:46 PM EDT Cough, unspecified type FUNDUS PHOTOS - OU - BOTH EYES Routine 10/19/2024 10:40 AM EDT Diabetes type 2, no ocular involvement (CMS/HCC) HEPATITIS C AB W/REFL TO HCV RNA, QN, PCR Routine 01/19/2024 11:39 AM EDT Screening examination for STI HIV 1/2 ANTIGEN/ANTIBODY, FOURTH GENERATION W/RFL Routine 01/19/2024 11:39 AM EDT Screening examination for STI LIPID PANEL, STANDARD Routine 12/14/2021 10:34 AM EDT MAMMOGRAM GENERIC Routine 05/02/2021 3:0 5 PM EST from Last 3 Months or Most Recently Relevant to Health Maintenance Results * Albumin, Random Urine W/Creatinine (01/18/2025 12:16 PM EDT) Creatinine, Urine 34.92 mg/dL [facility] Microalbumin Urine <5.0 mg/L [facility] Microalbum Creatinine Ratio Ur TNP <30 ug/mg cr [facility] Comment:Unable to calculate albumin/creatinine ratio due to lowmicroalbumin or creatinine result. Urine (Urine, Random) 01/18/2025 12:16 PM EDT 01/18/2025 12:54 PM EDT us Henri Patrick MD LAB URINE ORDERABLES Final Resul t [facility] [address] [place] [address] [place] [phone] * (ABNORMAL) CBC auto differential (01/18/2025 12:16 PM EDT) White Blood Count 8.9 4.8 - 10.8 X10*3/uL [facility] Red Blood Count 4.13(L) 4.20 - 5.50 X10*6/uL [facility] Hemoglobin 9.3(L) 12.0 - 16.0 g/dl [facility] Hematocrit 31.4(L) 37.0 - 47.0 % [facility] Mean Corpuscular Volume 76.0(L) 80.0 - 98.0 fL [facility] Mean Corpuscular Hemoglobin 22.5(L) 27.0 - 33.0 pg [facility] Mean Corpuscular HGB Conc 29.6(L) 31.0 - 35.0 g/dl [facility] Red Cell Distribution Width 16.8(H) 11.0 - 16.0 % [facility] Platelet Count 295 160 - 400 X10*3/uL [facility] Mean Platelet Volume 10.9 9.4 - 12.3 fL [facility] Neutrophils Percent Auto 67.2 45 - 73 % [facility] Imm Gran Pct Auto 0.2 0.0 - 0.4 % [facility] Lymphocytes Percent Auto 24.0 20 - 40 % [facility] Monocytes Percent Auto 7.1 2 - 11 % [facility] Eosinophils Percent Auto 1.1 0 - 4 % [facility] Basophils Percent Auto 0.4 0 - 2 % [facility] NRBC Pct Auto 0.0 0.0 - 0.2 /100WBC [facility] Neutrophils Absolute Auto 6.0 2.0 - 8.3 x10*3/uL [facility] Imm Gran Abs Auto 0.02 0.00 - 0.03 X10*3/uL [facility] Lymphocytes Absolute Auto 2.1 1.2 - 4.9 X10*3/uL [facility] Monocytes Absolute Auto 0.6 0.1 - 1.2 X10*3/uL [facility] Eosinophils Absolute Auto 0.1 0.0 - 0.4 X10*3/uL [facility] Basophils Absolute Auto 0.0 0.0 - 0.2 X10*3/uL [facility] NRBC Abs Auto 0.000 0.0 - 0.012 X10*3/uL [facility] Blood Venous blood specimen / Unknown 01/18/2025 12:16 PM EDT 01/18/2025 12:59 PM EDT us Henri Patrick MD LAB BLOOD ORDERABLES Final Resul t [facility] [address] [place] [phone] * (ABNORMAL) POCT Hgb A1c (01/18/2025 [...] specimen / Unknown 01/18/2025 11:22 AM EDT Result Ke Patrick MD POINT OF CARE TEST ENTER/EDIT OR DERABLES Final Result * POCT Rapid Influenza B JAUREGUI ID NOW (01/03/2025 1:56 PM EDT) Influenza B Negative Negative, Indeterminate [facility] QC Media Lot # [id number] [facility] Lot# Expiration Date [facility] Swab 01/03/2025 1:56 PM EDT Xiomy Schulz MD POINT OF CARE TEST ENTER /EDIT ORDERABLES Final Result Performing Organization Address [facility]/ZIP Co de Phone Number [facility] [address] [place] [phone] * POCT Rapid Influenza A JAUREGUI ID NOW (01/03/2025 1:55 PM EDT) Pathologist [facility] Influenza A Negative Negative, Indeterminate [facility] QC Media Lot # [id number] [facility] Lot# Expiration Date [facility] Swab 01/03/2025 1:55 PM EDT Xiomy Schulz MD POINT OF CARE TEST ENTER /EDIT ORDERABLES Final Result Performing Organization Address [facility] Co de Phone Number [facility] [address] [place] [phone] * POCT Rapid Covid-19 JAUREGUI ID NOW (01/03/2025 1:46 PM EDT) Pathologist [facility] Coronavirus Antigen PCR Negative Negative, Indeterminate, None Detected, Invalid, Specimen unsatisfactory for evaluation, Weakly Positive, 2+ QC Media Lot # [id number] Lot# Expiration Date Swab 01/03/2025 1:46 PM EDT Result [facility] Xiomy Schulz MD POINT OF CARE TEST ENTER /EDIT ORDERABLES Final Result * Fundus Photos - OU - Both Eyes (10/19/2024 10:40 AM EDT) Narrative Sonia Washington, OD - 11/04/2024 2:53 PM EDT Images from the original result were not included. Right Eye Disc findings include normal observations (C/D: 0.1/0.1, no NVD). Macula findings include normal observations (No CSME). Vessel findings include normal observations. Periphery findings include normal observations (No NVE). Left Eye Disc findings include normal observations (C/D: 0.1/0.1, no NVD). Macula findings include normal observations (No CSME). Vessel findings include normal observations. Periphery findings include normal observations (No NVE). Notes Assessment and Plan: No diabetic retinopathy noted to the extent seen today. Will call and schedule the patient for a refraction. us Sonia Washington OD OPHTH PHOTOGRAPHY Final Resul t * Hepatitis C Antibody with Reflex to HCV, RNA, Quantitative, Real-Time PCR (01/19/2024 11:39 AM EDT) Hepatitis C Antibody Nonreactive Nonreactive [facility] Comment:Antibodies to HCV no t detected; does not exclude early acuteHCV infection. Blood Venous blood specimen / Unknown 01/19/2024 11:39 AM EDT 01/19/2024 1:25 PM EDT Minnie Graff MD LAB BLOOD ORDERABLES Final Res ult [facility] [address] [place] [phone] * HIV-1/2 Antigen and Antibodies, Fourth Generation, with Reflexes (01/19/2024 11:39 AM EDT) HIV AB/AG Nonreactive Nonreactive [facility] Comment:HIV-1 p24 Ag and/or HIV-1/HIV-2 Ab not detected.A test result that is nonreactive does not exclude thepossibility of exposure to or infection with HIV-1 and/orHIV-2. Nonreactive results in this assay for individualswith prior exposure to HIV-1 and/or HIV-2 may be due toantigen and antibody levels that are below the limit ofdetection of this assay.The [employer] HIV Ag/Ab Combo assay result andsupplemental assay results should be interpreted inconjunction with the patient's clinical presentation,history and other laboratory results. If the results areinconsistent with clinical evidence, additional testing issuggested to confirm the result. Blood Venous blood specimen / Unknown 01/19/2024 11:39 AM EDT 01/19/2024 1:42 PM EDT Minnie Graff MD LAB BLOOD ORDERABLES Final Res ult Performing Organization Address [facility]/ZIP Co de Phone Number [facility] [address] [place] [phone] * (ABNORMAL) LIPID PANEL, STANDARD (12/14/2021 10:34 AM EDT) Chol/HDLC Ratio 2.9 <5.0 (calc) [facility] Cholesterol, Total 126 <200 mg/dL [facility] HDL Cholesterol 44(L) > OR = 50 mg/dL [facility] LDL Cholesterol 68 mg/dL (calc) [facility] Comment: Reference range: <100 Desirable range <100 mg/dL for primary prevention; <70 mg/dL for patients with CHD or diabetic patients with > or = 2 CHD risk factors. LDL-C is now calculated using the Edi-Perez calculation, which is a validated novel method providing better accuracy than the Friedewald equation in the estimation of LDL-C. Edi SS et al. BOB. 2013;310(19): 1667-4933 (http://education.[employer].Kontiki/faq/XSJ337) Non-HDL Cholesterol 82 <130 mg/dL (calc) [facility] Comment: For patients with diabetes plus 1 major ASCVD risk factor, treating to a non-HDL-C goal of <100 mg/dL (LDL-C of <70 mg/dL) is considered a therapeutic option. Triglycerides 65 <150 mg/dL [facility] 12/14/2021 10:3 4 AM EDT us Henri Patrick MD LAB BLOOD ORDERABLES Final Resul t Performing Organization Address City/[facility]/ZIP Co de Phone Number [facility] [address] [place] [address], * Mammography Report 1 (05/02/2021 3:05 PM EST) Anatomical Region Laterality Modality Breast Bilateral Mammography 05/02/2021 3:05 PM EST Narrative 05/03/2021 2:59 PM EST Refer to the Notes tab for result details [facility] Procedure: Mammography Report 1 Procedure Note Provider, MD Juliana - 06/16/2022 Refer to the Notes tab for result details [facility] Procedure: Mammography Report 1 us Henri Name MD OLSON BI PROCEDURES Final Result from Last 3 Months or Most Recently Relevant to Health Maintenance [place] [address] [address] [place] [address] [place] [address] [place] [phone] Care Teams Enrichment Specialist Relationship Specialty Start Date End Date Name, MD Henri [address] [place] [phone] PCP - General Family Medicine 04/04/15
--- OUTSIDE RECORDS SUMMARY | 2025-01-18 15:21 | XMS_ITS | Encounter Summary ---
Author Organization [employer] Address [address] [facility] [address] [place] [address] Care Team Providers Care Green Inspector Name Role Phone Name, Henri KEYES Primary Care Provider [phone] Reason for Visit * Reason Comments Med Change Request Encounter Details Date Type Department Care Team ([facility] Contact Info) Description 03/26/2023 Refill [facility] [address] [place], [place] [phone] Mindi Oliveros DO [address] [place], [place] [phone] Social History Tobacco Use Types Packs/Day Years [...] 2:00 PM EST Office Visit [facility] [address] [place] [address] ReadingIvett FNP [address] [place] [phone] documented as of this encounter Visit Diagnoses Not on filedocumented in this encounter Additional Health Concerns Assessment Noted Time PHQ-9 Depression Total Score: 21 023 1:40 PM EDT documented as of this encounter Care Teams Green Inspector Relationship Specialty Start Date End Date Name, MD Henri [address] [place] [phone] PCP - General Family Medicine 04/04/15 documented as of this encounter
--- OUTSIDE RECORDS SUMMARY | 2025-01-18 15:21 | XMS_ITS | Encounter Summary ---
Author Organization [employer] Address 75 [facility] 7t [place] [address] Care Team Providers Care Garment Tag Stringer Name Role Phone Name, Henri KEYES Primary Care Provider [phone] Reason for Visit * Reason Comments Med Refill Encounter Details Date Type Department Care Team ([facility] Contact Info) Description 08/18/2022 Refill [facility] MEDICINE [address] [place], [place] [phone] Name, MD Henri [address] [place] [address] Fibromyalgia; Osteoarthritis of knee, unspecified laterality, unspecified [...] Description 02/28/2025 2:00 PM EST Office Visit [facility] MEDICINE [address] [place], [place] [phone] [place] FNP [address] [place] [address] documented as of this encounter Visit Diagnoses Diagnosis Fibromyalgia Unspecified myalgia and myositis Osteoarthritis of knee, unspecified laterality, unspecified osteoarthritis type documented in this encounter Care Teams Garment Tag Stringer Relationship Specialty Start Date End Date Name, MD Henri [address] [place] [id number] PCP - General Family Medicine 04/04/15 documented as of this encounter
--- OUTSIDE RECORDS SUMMARY | 2025-01-18 15:21 | XMS_ITS | Encounter Summary ---
Author Organization [employer] Address 75 [facility] 7t [place] [address] Care Team Providers Care Department Assistant Name Role Phone Name, Henri KEYES Primary Care Provider [phone] Encounter Details Date Type Department Care Team (Late Contact Info) Description 12/09/2022 Telephone [facility] MEDICINE [address] [place] [address] [phone] Name, MD Henri [address] [place] [address] [phone] Social History Tobacco Use Types Packs/Day Years [...] Description 02/28/2025 2:00 PM EST Office Visit [facility] [address] [place] [address] [phone] Raymond, Ivett, [address] [address] documented as of this encounter Visit Diagnoses Not on filedocumented in this encounter Additional Health Concerns Assessment Noted Time PHQ-9 Depression Total Score: 21 023 1:40 PM EDT documented as of this encounter Care Teams Department Assistant Relationship Specialty Start Date End Date Name, MD Henri [address] [place] [address] PCP - General Family Medicine 04/04/15 documented as of this encounter
--- OUTSIDE RECORDS SUMMARY | 2025-01-18 15:21 | XMS_ITS | Encounter Summary ---
Author Organization [employer] Address [address] [facility] [address] 7t [place] [address] Care Team Providers Care Overedger Name Role Phone Name, Henri KEYES Primary Care Provider [phone] Encounter Details Date Type Department Care Team ([facility] Contact Info) Description 09/22/2023 Telephone [facility] MEDICINE [address] [place], [place] [phone] Name, MD Henri 230 [place], [place] [phone] Social History Tobacco Use Types Packs/Day Years [...] - 09/22/2023 12:51 PM EDT T/C to [phone] EXT [phone] for below message. No answer. LVM to call back on [phone] . * Telephone Encounter - Cee Sheets - 09/22/2023 9:05 AM EDT Tc yas [place] with [facility] requesting a call back . Regarding last message . Please contact [phone] documented in this encounter Plan of Treatment Upcoming Encounters Date Type Department Care Team (Late st Contact Info) Description 02/28/2025 2:00 PM EST Office Visit [facility] MEDICINE [address] [place] [address] [facility] [address] [place] [address] documented as of this encounter Visit Diagnoses Not on filedocumented in this encounter Additional Health Concerns Assessment Noted Time PHQ-9 Depression Total Score: 17 024 10:47 AM EST documented as of this encounter Care Teams Overedger Relationship Specialty Start Date End Date Name, MD Henri [address] [place] [address] PCP - General Family Medicine 04/04/15 documented as of this encounter
--- OUTSIDE RECORDS SUMMARY | 2025-01-18 15:21 | XMS_ITS | Encounter Summary ---
Author Organization [employer] Address 75 [facility] 7t [place] [address] Care Team Providers Care Capacitor Assembler Name Role Phone Name, Henri KEYES Primary Care Provider [phone] Reason for Visit * Reason Onset Date Comments FYI 09/02/2023 Encounter Details Date Type Department Care Team ([facility] Contact Info) Description 09/02/2023 Telephone [facility] MEDICINE 230 [place] [address] Name, MD Henri [address] [place] [address] FYI Social History Tobacco Use Types Packs/Day [...] - 09/02/2023 4:18 PM EDT Tc from [place] with [facility] calling to advise provider pt has been discharged from services today(09/01) and pt will be changing address on file. Unknown of new address. documented in this encounter Plan of Treatment Upcoming Encounters Date Type Department Care Team (Late st Contact Info) Description 02/28/2025 2:00 PM EST Office Visit [facility] MEDICINE [address] [place] [address] [facility] [address] [place] [address] documented as of this encounter Visit Diagnoses Not on filedocumented in this encounter Additional Health Concerns Assessment Noted Time PHQ-9 Depression Total Score: 17 024 10:47 AM EST documented as of this encounter Care Teams Capacitor Assembler Relationship Specialty Start Date End Date Name, MD Henri [address] [place] [address] PCP - General Family Medicine 04/04/15 documented as of this encounter
--- OUTSIDE RECORDS SUMMARY | 2025-01-18 15:21 | XMS_ITS | Encounter Summary ---
Author Organization [employer] Address 75 [facility] 7t [place] [address] Care Team Providers Care Studio Designer Name Role Phone Name, Henri KEYES Primary Care Provider [phone] Encounter Details Date Type Department Care Team (Latest Contact Info) Description 01/18/2025 Travel Social History Tobacco Use Types Packs/Day [...] AM EDT documented as of this encounter Functional [...] or on edge 3 01/18/2025 11:22 AM Maryam [place] Not being able to stop or control worrying 3 01/18/2025 11:22 AM Maryam [place] Worrying too much about different things 3 01/18/2025 11:22 AM Maryam [place] Trouble relaxing 1 01/18/2025 11:22 AM Juno [place] Being so restless that it is hard to sit still 3 01/18/2025 11:22 AM Maryam [place] Becoming easily annoyed or irritable 3 01/18/2025 11:22 AM Maryam [place] Feeling afraid as if something awful might happen 3 01/18/2025 11:22 AM Juno [place] JERONIMO-7 Total Score 19 01/18/2025 11:22 AM Juno [place] documented as of this encounter Plan of Treatment Upcoming Encounters Date Type Department Care Team (Late st Contact Info) Description 02/28/2025 2:00 PM EST Office Visit [facility] MEDICINE [address] [place] [address] [place] [facility] 230 [place] [address] documented as of this encounter Visit Diagnoses Not on filedocumented in this encounter Additional Health Concerns Assessment Noted Time PHQ-9 Depression Total Score: 18 025 11:22 AM EDT documented as of this encounter Care Teams Studio Designer Relationship Specialty Start Date End Date Name, MD Henri [address] [place] [address] PCP - General Family Medicine 04/04/15 documented as of this encounter
--- OUTSIDE RECORDS SUMMARY | 2025-01-18 15:22 | XMS_ITS | Clinical Summary ---
Author Organization [facility] Address [address] [place] [phone] Phone Care Team Providers Care Dealer Sales Rep Name Role Phone Pcp, Unknown Primary Care [...] file Insurance MEDICARE PART A & B [facility] Care Teams Dealer Sales Rep Relationship Specialty Start Date End Date Pcp, Unknown PCP - General 07/22/23 Additional Source Comments The information contained in this document represents components of the legal health record. It is not the complete legal health record.[facility]
--- OUTSIDE RECORDS SUMMARY | 2025-01-18 15:22 | XMS_ITS | Encounter Summary ---
Author Organization [employer] Address [address] [place] [address] 7t [place] [address] Care Team Providers Care Sample Clerk Name Role Phone Name, Henri KEYES Primary Care Provider [phone] Encounter Details Date Type Department Care Team (Late Contact Info) Description 03/04/2022 Orders Only [facility] MEDICINE [address] [place] [address] [phone] Rose Choi MD [address] [place] [address] [phone] Acute non-recurrent sinusitis, unspecified location (Primary Dx); [...] Description 02/28/2025 2:00 PM EST Office Visit [facility] MEDICINE [address] [place] [address] [phone] Ivett Fontanez FNP [address] [place] [address] documented as of this encounter Visit Diagnoses Diagnosis Acute non-recurrent sinusitis, unspecified location- Primary Wheezing documented in this encounter Care Teams Sample Clerk Relationship Specialty Start Date End Date Name, MD Henri 230 [place] [address] PCP - General Family Medicine 04/04/15 documented as of this encounter
[2025-01-18 16:46] LABS: Alanine Aminotransferase 17 U/L (0-31); Albumin Level 4.3 g/dL (3.5-5.0); Alkaline Phosphatase 123 U/L (39-117); Anion Gap 10 (12-20); Aspartate Amino Transferase 24 U/L (5-31); Blood Urea Nitrogen 15 mg/dL (9-16); Calcium 9.7 mg/dL (8.4-10.2); Carbon Dioxide 26 mmol/L (22-29); Chloride 111 mmol/L (96-108); Cholesterol 151 mg/dL (<200); Estimated Glomerular Filt Rate > 60; HDL Cholesterol 57 mg/dL (>40); Iron 27 mcg/dL (30-160); Percent Iron Saturation 7 % (15-50); Potassium 4.2 mmol/L (3.3-5.1); Sodium 143 mmol/L (135-145); Total Iron Binding Capacity 385 mcg/dL (228-428); Total Protein 7.1 g/dL (6.5-8.0); Triglycerides 61 mg/dL (<150); Unsaturated Iron Binding 358 ug/dL
[2025-01-18 16:59] LABS: Ferritin 8 ng/mL (10-250)
== END 2025-01-18 12:01 | disposition home or self-care (01) ==
LOC: HO.HHCL 12:00
PROVIDERS: PCP Internal Medicine Geriatric Medicine; Visit Provider Internal Medicine Geriatric Medicine
DX: E11.9 Type 2 diabetes mellitus without complications (principal); D50.9 Iron deficiency anemia, unspecified
CPT/HCPCS: 36415; 80053; 80061; 82043; 82570; 82728; 83540; 85025

== ENCOUNTER 2025-02-07 10:26 | Outpatient (AMB) | payer MEDICARE, MEDICAID, SELFPAY ==
--- NOTE | 2025-02-07 11:03 | A.OFFVIS_ITS ---
Intake Visit Reasons: INJ- Bilateral Knee Durolane Intake Note: Susana is a 65 year old female who presents today for Bilateral Knee Durolane Injections. Patient was unable to tolerate Bilateral knee injections. only the Right knee was injected, Left will be booked. second Durolane was wasted in the Pyxis Allergies No Known Allergies Allergy (Verified 11/14/23 11:24) HPI HPI INJ- Bilateral Knee Durolane: Details: Susana is here for bilateral during injections. [facility] Medical History (Updated 11/15/24 @ 10:51 by Harsha Duarte MD) Nicotine dependence, cigarettes, uncomplicated Carpal tunnel syndrome of right wrist Depression Anxiety Diabetes Obesity Rotator cuff impingement syndrome of right shoulder Primary osteoarthritis of right knee History of anemia History of asthma History of vitamin D deficiency History of fibromyalgia Surgical History History of carpal tunnel surgery of right wrist History of endoscopy History of hysteroscopy History of colonoscopy History of gastric bypass History of section Family History Mother No problems noted. Father No problems noted. Social History Alcohol intake: never Patient Tobacco Use Status: Current everyday Tobacco user Tobacco use type: Cigarette Years Smoked: (onset 17yo, 1ppd x 45yrs, 40pyh) Current occupational status: disabled Current occupation: right handed Physical Exam Exam Exam: Skin clean dry and intact bilateral knees. Mild right knee effusion Office Procedures Joint Inj/Aspir; Non-Pain Clin Joint Injection/Drain Details: Injected Durolane. Site was prepped using aseptic technique. Patient tolerated the procedure well. Shoulders, Hips, Knees, Knee Large Joint Injection : Right Knee Coding Procedure code (CPT) selection complete Assessment & Plan Assessment & Plan (1) Bilateral primary osteoarthritis of knee: Code(s): M17.0 - Bilateral primary osteoarthritis of knee Category: Medical Plan: 65-year-old woman with bilateral knee osteoarthritis and history of fibromyalgia. I injected her right knee with Gabby. This was uncomfortable for her and the fullness that she felt afterward lead her to decline the 2nd injection in her left knee. I understand her rationale and this is reasonable. She can follow up in 2 weeks and we can contemplate injection in the left and make sure that she is improving on her right. Coding Level of Care Code Est Pt Level 2 (81336) Diagnoses Bilateral primary osteoarthritis of knee M17.0 CPT Codes Shoulders, Hips, Knees, - Knee Large Joint Injection 82642: Right Knee ([id number])
== END 2025-02-07 11:26 | disposition home or self-care (01) ==
LOC: HO.HOS 10:27
PROVIDERS: PCP Internal Medicine Geriatric Medicine; Visit Provider Orthopaedic Surgery
DX: M17.0 Bilateral primary osteoarthritis of knee (principal)
CPT/HCPCS: 20610

== ENCOUNTER → 2025-02-07 10:26 | Outpatient (BNVA) | payer MEDICARE, MEDICAID, SELFPAY | PROVIDERS: PCP Internal Medicine Geriatric Medicine; Visit Provider Orthopaedic Surgery | DX: M17.0 Bilateral primary osteoarthritis of knee (principal) | CPT/HCPCS: 20610; J7318 ==

== ENCOUNTER 2025-03-03 09:59 | Outpatient (AMB) | payer MEDICARE, MEDICAID, SELFPAY ==
[2025-03-03 10:00] VITALS: BMI 40.9
--- NOTE | 2025-03-03 10:00 | MHC.OFFVIS ---
Vital Signs 03/03/25 10:00 Height 4 ft 7 in Weight 176 lb BMI 40.9 Intake Visit Reasons: INJ- LT Knee Durolane Intake Note: Susana is a 65 year old female who presents today for a Left Knee Durolane injection Allergies No Known Allergies Allergy (Verified 03/03/25 10:01) HPI HPI INJ- LT Knee Durolane: Details: Susana is a 65 year old female who presents today for a Left Knee Durolane injection. She is having severe back pain and does not want injection today [facility] Medical History Nicotine dependence, cigarettes, uncomplicated Carpal tunnel syndrome of right wrist Depression Anxiety Diabetes Obesity Rotator cuff impingement syndrome of right shoulder Primary osteoarthritis of right knee History of anemia History of asthma History of vitamin D deficiency History of fibromyalgia Surgical History History of carpal tunnel surgery of right wrist History of endoscopy History of hysteroscopy History of colonoscopy History of gastric bypass History of section Family History Mother No problems noted. Father No problems noted. Social History Alcohol intake: never Patient Tobacco Use Status: Current everyday Tobacco user Tobacco use type: Cigarette Years Smoked: (onset 17yo, 1ppd x 45yrs, 40pyh) Current occupational status: disabled Current occupation: right handed Physical Exam Vital Signs: BMI result Body Mass Index 40.9 Assessment & Plan Assessment & Plan (1) Bilateral primary osteoarthritis of knee: Code(s): M17.0 - Bilateral primary osteoarthritis of knee Category: Medical Plan: Gel injection cancelled 2/2 back pain. Patient will r/s accordingly Coding Level of Care Code Est Pt Level 2 (84241) Diagnoses Bilateral primary osteoarthritis of knee M17.0
== END 2025-03-03 15:23 | disposition left against medical advice (07) ==
LOC: HO.HOS 10:00
PROVIDERS: PCP Internal Medicine Geriatric Medicine; Visit Provider Orthopaedic Surgery
DX: M17.0 Bilateral primary osteoarthritis of knee (principal)
CPT/HCPCS: 99212

== ENCOUNTER → 2025-03-03 09:59 | Outpatient (BNVA) | payer MEDICARE, MEDICAID, SELFPAY | PROVIDERS: PCP Internal Medicine Geriatric Medicine; Visit Provider Orthopaedic Surgery | DX: M17.0 Bilateral primary osteoarthritis of knee (principal); Z53.29 Procedure and treatment not carried out because of patient's decision for other reasons | CPT/HCPCS: 99212 ==

== ENCOUNTER 2025-03-10 18:57 | Outpatient (REF) | payer MEDICARE, MEDICAID, SELFPAY ==
--- OUTSIDE RECORDS SUMMARY | 2025-03-10 14:45 | XMS_ITS | Encounter Summary ---
Author Organization [employer] Address 75 [facility] 7t [place] [address] Care Team Providers Care Payroll And Benefits Manager Name Role Phone Name, Henri KEYES Primary Care Provider [phone] Reason for Visit * Reason Comments pap Encounter Details Date Type Department Care Team (Latest Contact Info) Description 03/10/2025 2:45 PM EST Procedure Visit [facility] MEDICINE [address] [place], [place] [phone] Stacey Mabry, OSCAR [address] [place], [place] [phone] Cervical cancer screening (Primary Dx); Cervical polyp; Herpes; Family history of breast cancer Social History Tobacco Use Types Packs/Day Years Used Date Smoking Tobacco: Every Day Cigarettes Passive Smoke Exposure: Never Smokeless Tobacco: Never Tobacco Cessation:Ready to Q uit: Not Asked; Counseling Given: Not Answered Alcohol Use Standard Drinks/Week [...] Access Q2 Not on file 01/18/2025 Comments No Sex and Gender Information Value Date Recorded Sex Assigned at Female 01/21/2022 10:18 AM EDT Legal Sex Female 10:18 AM EDT Gender Identity Female 01/21/2022 10:18 AM EDT Sexual Orientation Choose not to disclose 2021 10:18 AM EDT documented as of this encounter Last Filed Vital Signs Vital Sign Reading Time Taken Comments Blood Pressure 160/70 03/10/2025 3:10 PM EST Pulse 65 03/10/2025 3:10 PM EST Temperature 36.3 C (97.3 F) 03/10/2025 3:10 PM EST Respiratory Rate 16 03/10/2025 3:10 PM EST Oxygen Saturation 97% 03/10/2025 3:10 PM EST Inhaled Oxygen Concentration - - Weight 81.2 kg (179 lb) 03/10/2025 3:10 PM EST Height - - Body Mass Index 37.41 02/28/2025 2:02 PM EST documented in this encounter Progress Notes * Stacey Mabry CNM - 03/10/2025 2:45 PM EST Subjective Patient ID: Susana Bird is a 65 y.o. female who presents for pap Mammogram ordered by PCP, but hasn't been contacted about appointment. No pap on file. Last pap 4-5y ago, no prior abnormal pap. Menopausal at 50, no bleeding since then. No vasomotor symptoms. No current partner. Known genital HSV, rare outbreaks. Needs refill on antiviral. Review of Systems Genitourinary: Negative for dyspareunia, dysuria, frequency, genital sores, hematuria, menstrual problem, pelvic pain, urgency, vaginal bleeding, vaginal discharge and vaginal pain. No abnormal pap, no abnormal bleeding, no breast pain, no breast mass, no nipple discharge Objective BP (!) 160/70 (BP Location: Left arm, Patient Position: Sitting, BP Cuff Size: Adult) Pulse 65 Temp 97.3 ??F (36.3 ??C) (Oral) Resp 16 Wt 179 lb (81.2 kg) LMP (LMP Unknown) Comment: 48 SpO2 97% BMI 37.41 kg/m?? Physical Exam Mold Parter present: declines aircraft maintenance supervisor. Constitutional: Appearance: Normal appearance. Chest: Breasts: Right: Normal. No swelling, bleeding, inverted nipple, mass, nipple discharge, skin change or tenderness. Left: Normal. No swelling, bleeding, inverted nipple, mass, nipple discharge, skin change or tenderness. Genitourinary: General: Normal vulva. Labia: Right: No rash, tenderness, lesion or injury. Left: No rash, tenderness, lesion or injury. Vagina: Normal. No signs of injury and foreign body. No vaginal discharge, erythema, tenderness, bleeding or lesions. Cervix: Lesion present. No cervical motion tenderness, discharge, friability, erythema, cervical bleeding or eversion. Uterus: Normal. Not enlarged and not tender. Adnexa: Right adnexa normal and left adnexa normal. Right: No mass, tenderness or fullness. Left: No mass, tenderness or fullness. Comments: Small cervical polyp noted in os Lymphadenopathy: Upper Body: Right upper body: No supraclavicular or axillary adenopathy. Left upper body: No supraclavicular or axillary adenopathy. Neurological: Mental Status: She is alert. Psychiatric: Mood and Affect: Mood normal. Behavior: Behavior normal. Assessment/Plan Diagnoses and all orders for this visit: Cervical cancer screening - Pap Smear Cotest today. Repeat 5 y if normal/HPV negative. Pap 3 years/co-test 5 years. Routine mammography. Report bleeding. Bone density at 65, sooner if new risk factors Cervical polyp Sampled with pap. Hyperpigmented vs vascular. Will refer to [employer] CUTTER MACHINE for removal after pap results in. Herpes - valACYclovir (Valtrex) 500 MG tablet; TAKE 1 TABLET BY MOUTH TWICE A DAY FOR 3 DAYS Valtrex renewed. Report frequent outbreaks. Family history of breast cancer [place] refaxed mammogram order. Will calculate lifetime risk of breast cancer to see if additional testing indicated when mammogram in. Would like assistance with housing, feels unsafe in current neighborhood. Will have [place] [facility] referral. documented in this encounter Plan of Treatment Scheduled Orders Name Type Priority Associated Diagnoses Orde r Schedule Pap Smear Pathology and Cytology Routine Cervical cancer screening Ordered: 03/10/2025 documented as of this encounter Visit Diagnoses Diagnosis Cervical cancer screening- Primary Screening for malignant neoplasm of the cervix Cervical polyp Mucous polyp of cervix Herpes Herpes simplex without mention of complication Family history of breast cancer Family history of malignant neoplasm of breast documented in this encounter Additional Health Concerns Assessment Noted Time PHQ-9 Depression Total Score: 18 025 11:22 AM EDT documented as of this encounter Care Teams Payroll And Benefits Manager Relationship Specialty Start Date End Date Name, MD Henri [address] [place] [address] PCP - General Family Medicine 04/04/15 documented as of this encounter
--- OUTSIDE RECORDS SUMMARY | 2025-03-10 20:00 | XMS_ITS | Encounter Summary ---
Author Organization [employer] Address 75 [facility] 7t [place] [address] Care Team Providers Care Cone Worker Name Role Phone Name, Henri KEYES Primary Care Provider [phone] Encounter Details Date Type Department Care Team ([facility] st Contact Info) Description 04/30/2022 Orders Only [facility] MEDICINE [address] [place] [address] Aminah Orona LPN Social History Tobacco Use [...] as of this encounter Plan of Treatment Not on file documented as of this encounter Visit Diagnoses Not on filedocumented in this encounter Care Teams Cone Worker Relationship Specialty Start Date End Date Name, MD Henri [address] [place] [address] PCP - General Family Medicine 04/04/15 documented as of this encounter
--- OUTSIDE RECORDS SUMMARY | 2025-03-10 20:00 | XMS_ITS | Encounter Summary ---
Author Organization [employer] Address 75 [facility] 7t [place] [address] Care Team Providers Care Precinct Police Sergeant Name Role Phone Name, Henri KEYES Primary Care Provider [phone] Reason for Visit * Reason Comments Med Change Request Encounter Details Date Type Department Care Team ([facility] Contact Info) Description 03/04/2022 Refill [facility] MEDICINE 230 [place], [place] [phone] Rose Choi MD [address] [place] [address] Wheezing Social History Tobacco Use Types Packs/Day [...] PM EST RX for nebulizer faxed to [facility] emergency department with notes 03/07/2022 * Telephone Encounter - Chitra Lobo - 03/06/2022 10:08 AM EST New RX generated for nebulizer waiting on signature also notes needed and will be faxed to [facility] [place] [phone] * Telephone Encounter - Elina Orona RN [...] documented in this encounter Plan of Treatment Not on file documented as of this encounter Visit Diagnoses Diagnosis Wheezing documented in this encounter Care Teams Precinct Police Sergeant Relationship Specialty Start Date End Date Name, MD Henri [address] [place] [address] PCP - General Family Medicine 04/04/15 documented as of this encounter
--- OUTSIDE RECORDS SUMMARY | 2025-03-10 20:00 | XMS_ITS | Encounter Summary ---
Author Organization [employer] Address 75 [facility] 7t [place] [address] Care Team Providers Care Government Affairs Manager Name Role Phone Name, Henri KEYES Primary Care Provider [phone] Encounter Details Date Type Department Care Team ([facility] Contact Info) Description 03/04/2022 Orders Only [facility] MEDICINE [address] [place], [place] [phone] Rose Choi MD [address] [place], [place] [phone] Acute non-recurrent sinusitis, unspecified location (Primary Dx); [...] Wheezing documented in this encounter Care Teams Government Affairs Manager Relationship Specialty Start Date End Date Name, MD Henri [address] [place], [place] [phone] PCP - General Family Medicine 04/04/15 documented as of this encounter
--- OUTSIDE RECORDS SUMMARY | 2025-03-10 20:00 | XMS_ITS | Encounter Summary ---
Author Organization [employer] Address 75 [facility] 7t [place] [address] Care Team Providers Care Denture Laboratory Technician Name Role Phone Name, Henri KEYES Primary Care Provider [phone] Encounter Details Date Type Department Care Team ([facility] Contact Info) Description 12/09/[address] [facility] MEDICINE [address] [place] [address] [phone] Name, MD Henri [address] [place] [address] Social History Tobacco Use Types Packs/Day Years [...] documented as of this encounter Care Teams Denture Laboratory Technician Relationship Specialty Start Date End Date NameHenri MD [address] [place] [address] PCP - General Family Medicine 04/04/15 documented as of this encounter
--- OUTSIDE RECORDS SUMMARY | 2025-03-10 20:00 | XMS_ITS | Encounter Summary ---
Author Organization [employer] Address 75 [facility] 7t [place] [address] Care Team Providers Care Batch Mixer Operator Name Role Phone Name, Henri KEYES Primary Care Provider [phone] Reason for Visit * Reason Onset Date Comments FYI 09/02/2023 Encounter Details Date Type Department Care Team ([facility] Contact Info) Description 09/02/2023 Telephone [facility] MEDICINE 230 [place] [address] Name, MD Henri [address] [place] [address] FYI Social History Tobacco Use Types Packs/Day [...] - 09/02/2023 4:18 PM EDT Tc from [place] with [facility] calling to advise provider pt has [...] documented as of this encounter Care Teams Batch Mixer Operator Relationship Specialty Start Date End Date Name, MD Henri [address] [place] [address] PCP - General Family Medicine 04/04/15 documented as of this encounter
--- OUTSIDE RECORDS SUMMARY | 2025-03-10 20:00 | XMS_ITS | Encounter Summary ---
Author Organization [employer] Address [address] [facility] [address] [place] [address] Care Team Providers Care Application Packaging Consultant Name Role Phone Name, Henri KEYES Primary Care Provider [phone] Reason for Visit * Reason Onset Date Comments chart prep 03/09/2025 Encounter Details Date Type Department Care Team ([facility] [address] Contact Info) Description 03/09/2025 Telephone [facility] MEDICINE [address] [place], [place] [phone] Stacey Mabry, OSCAR [address] [place] [address] chart prep Social History Tobacco Use Types Packs/Day Years [...] encounter Miscellaneous Notes * Telephone Encounter - Teresa Camilo MA - 03/09/2025 4:19 PM EST ..Chart Prep Labs: not applicable Images: not applicable Vaccines due: Updated Referrals: Not Applicable Screenings: Mammogram and Eye Exam Overdue care gaps: None documented in this encounter Plan of Treatment Not on file documented as of this encounter Visit Diagnoses Not on filedocumented in this encounter Additional Health Concerns Assessment Noted Time PHQ-9 Depression Total Score: 18 025 11:22 AM EDT documented as of this encounter Care Teams Application Packaging Consultant Relationship Specialty Start Date End Date Name, MD Henri [address] [place] [address] PCP - General Family Medicine 04/04/15 documented as of this encounter
--- OUTSIDE RECORDS SUMMARY | 2025-03-10 20:00 | XMS_ITS | Encounter Summary ---
Author Organization [employer] Address [address] [facility] [place] [address] Care Team Providers Care Admissions Rn Name Role Phone Name, Henri KEYES Primary Care Provider [phone] Encounter Details Date Type Department Care Team ([facility] Contact Info) Description 09/22/2023 Telephone [facility] MEDICINE [address] [place], [place] [phone] Name, MD Henri [address] [place], [place] [phone] Social History Tobacco Use Types Packs/Day Years [...] - 09/22/2023 12:51 PM EDT T/C to [phone] EXT [phone] for below message. No answer. LVM to call back on [phone] . * Telephone Encounter - Cee Sheets - 09/22/2023 9:05 AM EDT Tc yas [place] with [facility] requesting a call back . Regarding last message . Please contact [phone] documented in this encounter Plan of Treatment Not on file documented as of this encounter Visit Diagnoses Not on filedocumented in this encounter Additional Health Concerns Assessment Noted Time PHQ-9 Depression Total Score: 17 024 10:47 AM EST documented as of this encounter Care Teams Admissions Rn Relationship Specialty Start Date End Date Name, MD Henri [address] [place] [address] PCP - General Family Medicine 04/04/15 documented as of this encounter
--- OUTSIDE RECORDS SUMMARY | 2025-03-10 20:00 | XMS_ITS | Encounter Summary ---
Author Organization [employer] Address [address] [facility] 7t [place] [address] Care Team Providers Care Press Room Supervisor Name Role Phone Name, Henri KEYES Primary Care Provider [phone] Reason for Visit * Reason Onset Date Comments Med Refill 03/20/2023 Encounter Details Date Type Department Care Team ([facility] Contact Info) Description 03/20/2023 Telephone [facility] MEDICINE [address] [place] [address] Name, MD Henri [address] [place], [place] [phone] Med Refill Social History Tobacco Use Types [...] 50 MG tablet To be sent to: [facility]/pharmacy #[id number] documented in this encounter Plan of Treatment Not on file documented as of this encounter Visit Diagnoses Not on filedocumented in this encounter Additional Health Concerns Assessment Noted Time PHQ-9 Depression Total Score: 21 023 1:40 PM EDT documented as of this encounter Care Teams Press Room Supervisor Relationship Specialty Start Date End Date Name, MD Henri [address] [place] [address] PCP - General Family Medicine 04/04/15 documented as of this encounter
--- OUTSIDE RECORDS SUMMARY | 2025-03-10 20:00 | XMS_ITS | Encounter Summary ---
Author Organization [employer] Address [address] [facility] 7t [place] [address] Care Team Providers Care Manager Behavior Name Role Phone Name, Henri KEYES Primary Care Provider [phone] Reason for Visit * Reason Comments Med Refill Encounter Details Date Type Department Care Team ([facility] Contact Info) Description 08/24/2022 Refill [facility] MEDICINE [address] [place], [place] [phone] Name, MD Henri [address] [place] [address] Social History Tobacco Use Types Packs/Day Years [...] documented as of this encounter Care Teams Manager Behavior Relationship Specialty Start Date End Date Name, MD Henri [address] [place] [address] PCP - General Family Medicine 04/04/15 documented as of this encounter
--- OUTSIDE RECORDS SUMMARY | 2025-03-10 20:00 | XMS_ITS | Clinical Summary ---
Author Organization [facility] Address [address] [place] [phone] Phone Care Team Providers Care Firer Boiler Name Role Phone Pcp, Unknown Primary Care [...] file Insurance MEDICARE PART A & B [facility] Care Teams Firer Boiler Relationship Specialty Start Date End Date Pcp, Unknown PCP - General 07/22/23 Additional Source Comments The information contained in this document represents components of the legal health record. It is not the complete legal health record.[facility]
--- OUTSIDE RECORDS SUMMARY | 2025-03-10 20:00 | XMS_ITS | Encounter Summary ---
Author Organization [employer] Address [address] [facility] 7t [place] [address] Care Team Providers Care Hospitality Coordinator Name Role Phone Name, Henri KEYES Primary Care Provider [phone] Reason for Visit * Reason Comments Med Change Request Encounter Details Date Type Department Care Team ([facility] Contact Info) Description 03/26/2023 Refill [facility] MEDICINE [address] [place], [place] [phone] Mindi Oliveros DO [address] [place], [place] [phone] Social History Tobacco Use Types Packs/Day Years [...] documented as of this encounter Care Teams Hospitality Coordinator Relationship Specialty Start Date End Date Name, MD Henri [address] [place] [address] PCP - General Family Medicine 04/04/15 documented as of this encounter
--- OUTSIDE RECORDS SUMMARY | 2025-03-10 20:00 | XMS_ITS | Encounter Summary ---
Author Organization [employer] Address [address] [facility] 7t [place] [address] Care Team Providers Care Material Mixer Name Role Phone Name, Henri KEYES Primary Care Provider [phone] Reason for Visit * Reason Comments Med Refill Encounter Details Date Type Department Care Team ([facility] Contact Info) Description 08/18/2022 Refill [facility] MEDICINE [address] [place], [place] [phone] Name, MD Henri [address] [place] [address] Fibromyalgia; Osteoarthritis of knee, unspecified laterality, unspecified [...] Health Questionnaire-2 Score 6 07/24 1:40 PM EDT Elaine Gibson * How difficult have these problems made it for you to do your work, take care of things at home, or get along with other people? Answer Date of Assessment Author Extremely difficult 08/20/2022 1:40 PM EDT Elaine Giraldo * Over the past 2 weeks, how often have you been bothered by any of the following problems? Question Answer Date of Assessment Author Little interest or pleasure in doing things Nearly every day 08/20/2022 1:40 PM Elaine Valencia Feeling down, depressed, or hopeless Nearly every day 08/20/2022 1:40 PM EDT Nicole Gibson Trouble falling or staying asleep, or sleeping too much More than half the days 08/20/2022 1:40 PM Elaine Valencia Feeling tired or having little energy Nearly every day 08/20/2022 1:40 PM Nicole Valencia Poor appetite or overeating Nearly every day 08/20/2022 1:40 PM TIGRET Nicole Gibson Feeling bad about yourself - or that you are a failure or have let yourself or your family down Nearly every day 08/20/2022 1:40 PM TIGRET Nicole Gibson Trouble concentrating on things, such as reading [...] type documented in this encounter Care Teams Material Mixer Relationship Specialty Start Date End Date Name, MD Henri [address] [place] [id number] PCP - General Family Medicine 04/04/15 documented as of this encounter
--- OUTSIDE RECORDS SUMMARY | 2025-03-10 20:00 | XMS_ITS | Clinical Summary ---
Author Organization [employer] Address [address] [place] [address] [address] [place] [address] Care Team Providers Care Client Development Consultant Name Role Phone Name, Henri KEYES Primary Care Provider [phone] Allergies Active Allergy Reactions Criticality Noted Date Comments Oxycodone-Acetaminophen 08/20/2023 Medications Respiratory Therapy Supplies (Nebulizer Mask Adult) miscIndications :Wheezing 1 each every 4 (four) hours if [...] g 023 Active sertraline (Zoloft) 50 MG tabletIndicatio ns:Depression, recurrent (CMS/HCC) TOME 1 TABLETA POR V A ORAL TODOS LOS D Active SUMAtriptan (Imitrex) 25 MG tabletIndicatio ns:Migraine without status migrainosus, not intractable, unspecified migraine type Take 25 mg by mouth. 024 Active zolpidem (Ambien) 10 MG tabletIndicatio ns:Primary insomnia Take 1 tablet by mouth at bed time. 020 Active gabapentin (Neurontin) 300 MG capsuleIndicati ons:Fibromyalgi a Take 1 capsule (300 mg) by mouth [...] 12 tablet Active meloxicam (Mobic) 7.5 MG tabletIndicatio ns:Chronic pain of both knees Take 1 tablet [...] NEEDED FOR EXTREME ANXIETY, TAKE SPARINGSLY Active benztropine (Cogentin) 0.5 MG tablet TOME 1 TABLETA POR V A ORAL TODOS LOS D EN LA VERONICA MARILYNN Active Dulaglutide (Trulicity) 3 MG/0.5ML solution auto-injectorIn dications:Type 2 diabetes mellitus without complication, without long-term current use of insulin ([facility]),Severe obesity (BMI 35.0-39.9) with comorbidity ([facility]/HCC) ([facility]) Inject 3 mg under the skin 1 (one) time per week. 2 mL 2025 Active Diclofenac Sodium (Voltaren Arthritis Pain) 1 % gel Apply thin layer to affected joint twice a day 50 g 2 Active atorvastatin (Lipitor) 20 MG tablet Take 1 tablet (20 mg) by mouth Once per day. 30 tablet 11 2025 Active metoprolol succinate XL (Toprol-XL) 25 MG 24 hr tabletIndicatio ns:Migraine without aura and without status migrainosus, not [...] 2025 Active albuterol 108 (90 Base) MCG/ACT inhalerIndicati ons:Moderate persistent asthma without complication Inhale 2 puffs every 6 (six) hours if needed for wheezing. 18 g 6 Active albuterol (2.5 MG/3ML) 0.083% nebulizer solutionIndicat ions:Moderate persistent asthma without complication Take 3 mL (2.5 mg) by nebulization every 4 (four) hours if needed for wheezing. 75 mL 2025 Active fluticasone furoate (Arnuity Ellipta) 100 MCG/ACT inhaler Inhale 1 puff Once per day. Rinse mouth with water after use to reduce aftertaste and incidence of candidiasis. Do not swallow. 1 each 11 2025 Active ferrous sulfate 325 (65 Fe) MG EC tabletIndicatio ns:Iron deficiency anemia, unspecified iron deficiency anemia type Take 1 tablet (325 mg) by mouth every other day. Take 1 tablet (325 mg) by mouth every other day. 15 tablet 11 2025 Active Acetaminophen Extra Strength 500 MG tablet TAKE 1 TABLET BY MOUTH EVERY 6 (SIX) HOURS IF NEEDED FOR MILD PAIN. 120 tablet Active valACYclovir (Valtrex) 500 MG tabletIndicatio ns:Herpes TAKE 1 TABLET BY MOUTH TWICE A DAY FOR 3 DAYS 30 tablet 1 Active valACYclovir (Valtrex) 500 MG tabletIndicatio ns:Herpes TAKE 1 TABLET BY MOUTH TWICE A DAY FOR 3 DAYS 6 tablet 5 024 2024 Discontinued(R eorder (will not trigger notification to Pharmacy)) Active [...] 01/19/2024 Severe obesity (BMI 35.0-39.9) with comorbidity (CMS/[facility]) 08/15/2023 Anemia 08/08/2023 Anxiety with depression [...] Encounters Date Type Department Care Team Description 03/10/2025 2:45 PM EST Procedure Visit [facility] [address] [place] [id number] Stacey Mabry CNM Cervical cancer screening (Primary Dx); Cervical polyp; Herpes; Family history of breast cancer 03/10/2025 Travel 03/10/[address] [address] Theresa Monroy, Sirena 03/09/[address] [address] Stacey Mabry CNM chart prep 02/28/2025 2:00 PM EST Office Visit [facility] [address] [place] [address] [facility] Type 2 diabetes mellitus without complication, without long-term current use of insulin (HCC) (Primary Dx); Primary hypertension; Family history of breast cancer in first degree relative; Tobacco use disorder; Encounter for immunization; Dietary counseling; Exercise counseling 02/28/2025 Travel 02/23/2025 Patient Outreach [facility] [address] [place] [address] Henri Patrcik MD Medicare Annual Wellness Visit Initial (Due for an annual Wellness Visit, Please schedule/) 02/14/2025 Patient Outreach [facility] [address] [place] [phone] Henri Patrick MD Pre-visit Planning (SDOH screening completed on 01/18/2025) 02/07/2025 9:00 AM EST Office Visit [facility] [address] [place] [phone] Felix, Sonia, OD Hyperopia of both eyes (Primary Dx) 01/30/2025 Refill [facility] [address] [address] Marilynn Schulz MD 01/20/[address] [address] Juno Delaney [place] Referral (Lung Screening ) 01/19/[address] [address] Henri Patrick MD Iron deficiency anemia, unspecified iron deficiency anemia type 01/19/2025 Results Follow-Up [address] [address] Henri Patrick MD POCT Glucose, POCT Hgb A1c, CBC auto differential, Additional followed-up results: 5 01/18/2025 11:15 AM EDT Office Visit [address] [address] Henri Patrick MD Type 2 diabetes mellitus [...] Encounter for immunization 01/18/2025 Travel 01/17/[address] [address] Henri Patrick MD Chart Prep 01/03/2025 2:00 PM EDT Office Visit [facility] [address] [address] Marilynn Schulz MD Subacute pansinusitis (Primary Dx); Moderate persistent asthma without complication; Cough, unspecified type 01/03/2025 Travel 12/27/2024 1:00 PM EDT Office Visit [facility] [address] [place] [phone] Sonia Washington, OD Photopsia (Primary Dx); Presbyopia 12/27/2024 Travel from Last 3 Months Immunizations Immunization Administration Dates Next Due Influenza Injectable Quadriv alant Preservative Free IIV4 MDCK 01/16/2021 Influenza injectable quadriv alent IIV4 with preservative 01/01/2019,02/05/2017,12/19/2015 Influenza injectable quadriv alent preservative free 01/29/2023,12/14/2021,03/26/2018 Influenza, IIV3, injectable 01/21/2014 Influenza, Recombinant, inje ctable, preservative free 11/21/2024 Influenza, seasonal, injecta ble, preservative free 01/19/2024 Pfizer Covid-19 Vaccine 12+ 02/28/2025, Pneumococcal Conjugate PCV 20 01/18/2025 Pneumococcal Polysaccharide PPSV23 04/20/2015 RSV Bivalent 11/21/2024 TD (adult), 2 Lf tetanus tox oid, preservative free, adsorbed 02/05/2017 Tdap 11/21/2024,11/04/2014 Zoster, Recombinant 12/29/2024,09/30/2023 Family History Medical History Relation Name Comments Breast cancer Mother Uterine cancer Sister Relation Name Status Comments Mother Sister Social History Tobacco Use Types Packs/Day Years [...] (179 lb) 03/10/2025 3:10 PM EST Height 147.3 cm (4' 10 ) 02/28/2025 2:02 PM EST Body Mass Index 37.41 02/28/2025 2:02 PM EST Plan of Treatment Health Maintenance Due Date Last Done Comments CT Colonography 1962 Colonoscopy 1962 Colorectal Cancer Screening 1962 FIT DNA/Cologuard 1962 FIT 1962 FOBT 1962 Sigmoidoscopy 1962 Eye Exam 02/02/1972 Pap Smear 1983 Cervical Cancer Screening 02/02/1992 HPV/Cotest 02/02/1992 Mammogram 05/02/2023 05/02/2021, 05/27/2018 Diabetes: Foot Exam 05/26/2024 05/27/2023, 05/27/2023, 05/27/2023, Additional history exists Depression Monitoring 07/19/2025 01/18/2025, 025 Diabetes: Hemoglobin A1C 07/19/2025 025, 06/25/2024, 01/19/2024, Additional history exists Alcohol/Substance Use Screening 01/18/2026 01/18/2025 Diabetes: Urine Protein Screening 01/18/2026 01/18/2025, 01/19/2024, 01/15/2023, Additional history exists Disability Screening 01/18/2026 01/18/2025 Lipid Panel 01/18/2026 01/18/2025, 11/23, 01/17/2021 SDOH Screening 01/18/2026 01/18/2025 Tobacco Screening 03/10/2026 03/10/2025 DTaP/Tdap/Td Vaccines (4 - Td or Tdap) 11/21/2034 11/21/2024, 02/05/2017, 11/04/2014 HIV Screening Completed 01/19/2024 Hepatitis C Screening Completed 01/19/2024 Influenza Vaccine Completed 11/21/2024, , 01/29/2023, Additional history exists RSV Patients and Patients Aged 60 years or older Completed 11/21/2024 Zoster Vaccines Completed 12/29/2024, 09/30/2023 Pneumococcal Vaccine: 50+ Years Completed 01/18/2025, 04/20/2015 COVID-19 Vaccine Completed 02/28/2025, , 02/26/2022, Additional history exists HIB Vaccines Aged Out [...] without long-term current use of insulin (HCC) LIPID PANEL, STANDARD Routine 01/18/2025 12:16 PM EDT Type 2 diabetes mellitus without complication, without long-term current use of insulin (HCC) COMPREHENSIVE METABOLIC PANEL Routine 01/18/2025 12:16 PM EDT Type 2 diabetes mellitus without complication, without long-term current use of insulin (HCC) FERRITIN Routine 01/18/2025 12:16 PM EDT Iron deficiency anemia, unspecified iron deficiency anemia type IRON AND TOTAL IRON BINDING CAPACITY Routine 01/18/2025 12:16 PM EDT Iron deficiency anemia, unspecified iron deficiency anemia type CBC WITH AUTO DIFFERENTIAL Routine 01/18/2025 12:16 [...] 01/03/2025 1:46 PM EDT Cough, unspecified type HEPATITIS C AB W/REFL TO HCV RNA, QN, PCR Routine 01/19/2024 11:39 AM EDT Screening examination for STI HIV 1/2 ANTIGEN/ANTIBODY, FOURTH GENERATION W/RFL Routine 01/19/2024 11:39 AM EDT Screening examination for STI MAMMOGRAM GENERIC Routine 05/02/2021 3:0 5 PM EST from Last 3 Months or Most Recently Relevant to Health Maintenance Results * Albumin, Random Urine W/Creatinine (01/18/2025 12:16 PM EDT) Creatinine, Urine 34.92 mg/dL [facility] Microalbumin Urine <5.0 mg/L [facility] Microalbum Creatinine Ratio Ur TNP <30 ug/mg cr [facility] Comment:Unable to calculate albumin/creatinine ratio due to lowmicroalbumin or creatinine result. Urine (Urine, Random) 01/18/2025 12:16 PM EDT 01/18/2025 12:54 PM EDT us Henri Patrick MD LAB URINE ORDERABLES Final Resul t [facility] [address] [place] [phone] * (ABNORMAL) CBC auto differential (01/18/2025 12:16 PM EDT) White Blood Count 8.9 4.8 - 10.8 X10*3/uL [facility] Red Blood Count 4.13(L) 4.20 - 5.50 X10*6/uL [facility] Hemoglobin 9.3(L) 12.0 - 16.0 g/dl [facility] Hematocrit 31.4(L) 37.0 - 47.0 % [facility] Mean Corpuscular Volume 76.0(L) 80.0 - 98.0 fL [facility] Mean Corpuscular Hemoglobin 22.5(L) 27.0 - 33.0 pg [facility] Mean Corpuscular HGB Conc 29.6(L) 31.0 - 35.0 g/dl [facility] Red Cell Distribution Width 16.8(H) 11.0 - 16.0 % [facility] Platelet Count 295 160 - 400 X10*3/uL [facility] Mean Platelet Volume 10.9 9.4 - 12.3 fL [facility] Neutrophils Percent Auto 67.2 45 - 73 % [facility] Imm Gran Pct Auto 0.2 0.0 - 0.4 % [facility] Lymphocytes Percent Auto 24.0 20 - 40 % [facility] Monocytes Percent Auto 7.1 2 - 11 % [facility] Eosinophils Percent Auto 1.1 0 - 4 % [facility] Basophils Percent Auto 0.4 0 - 2 % [facility] NRBC Pct Auto 0.0 0.0 - 0.2 /100WBC [facility] Neutrophils Absolute Auto 6.0 2.0 - 8.3 x10*3/uL [facility] Imm Gran Abs Auto 0.02 0.00 - 0.03 X10*3/uL [facility] Lymphocytes Absolute Auto 2.1 1.2 - 4.9 X10*3/uL [facility] Monocytes Absolute Auto 0.6 0.1 - 1.2 X10*3/uL [facility] Eosinophils Absolute Auto 0.1 0.0 - 0.4 X10*3/uL [facility] Basophils Absolute Auto 0.0 0.0 - 0.2 X10*3/uL [facility] NRBC Abs Auto 0.000 0.0 - 0.012 X10*3/uL [facility] Blood Venous blood specimen / Unknown 01/18/2025 12:16 PM EDT 01/18/2025 12:59 PM EDT us Henri Patrick MD LAB BLOOD ORDERABLES Final Resul t Performing Organization Address [facility] Co de Phone Number [facility] [address] [place] [phone] * (ABNORMAL) Iron And Total Iron Binding Capacity (01/18/2025 12:16 PM EDT) Iron 27(L) 30 - 160 mcg/dL [facility] Total Iron Binding Capacity 385 228 - 428 mcg/dL [facility] Percent Iron Saturation 7(L) 15 - 50 % [facility] Unsaturated Iron Binding 358 ug/dL [facility] Blood Venous blood specimen / Unknown 01/18/2025 12:16 PM EDT 01/18/2025 4:12 PM EDT us Henri Patrick MD LAB BLOOD ORDERABLES Final Resul t Performing Organization Address [facility] Co de Phone Number [facility] [address] [place] [phone] * (ABNORMAL) Ferritin (01/18/2025 12:16 PM EDT) Ferritin 8(L) 10 - 250 ng/mL [facility] Blood Venous blood specimen / Unknown 01/18/2025 12:16 PM EDT 01/18/2025 4:12 PM EDT us Henri Patrick MD LAB BLOOD ORDERABLES Final Resul t Performing Organization Address [facility] Co de Phone Number [facility] [address] [place] [phone] * Lipid Panel, Standard (01/18/2025 12:16 PM EDT) Triglycerides 61 <150 mg/dL [facility] Comment:Desirable Triglyceri de: less than 150 mg/dLBorderline High Triglyceride 150-199 mg/dLHigh Triglyceride: 200-499 mg/dLVery High Triglyceride: greater than or equal to 5OO mg/dL Cholesterol 151 <200 mg/dL [facility] Comment:Desirable Cholestero l: less than 200 mg/dLBorderline High Cholesterol: 200-239 mg/dLHigh Cholesterol: greater than 239 mg/dL LDL Cholesterol Calculated 82 <100 mg/dL [facility] Comment:Desirable LDL: less than 100 mg/dLNear Optimal/Above Optimal LDL: 110- 129 mg/dLBorderline High LDL: 130-159 mg/dLHigh LDL: 160-189 mg/dLVery High LDL: greater than or equal to 190 mg/dL HDL Cholesterol 57 >40 mg/dL [facility] Comment:Desirable HDL: great er than 40 mg/dL Note: This HDL assay may give artificially low results in patients with liver disease. Blood Venous blood specimen / Unknown 01/18/2025 12:16 PM EDT 01/18/2025 4:12 PM EDT us Henri Name LAB BLOOD ORDERABLES Final Resul t [facility] [address] [place] [phone] * (ABNORMAL) Comprehensive Metabolic Panel (01/18/2025 12:16 PM EDT) Sodium 143 135 - 145 mmol/L [facility] Potassium 4.2 3.3 - 5.1 mmol/L [facility] Chloride 111(H) 96 - 108 mmol/L [facility] Carbon Dioxide 26 22 - 29 mmol/L [facility] Anion Gap 10(L) 12 - 20 [facility] Urea Nitrogen (BUN) 15 9 - 16 mg/dL [facility] Creatinine, Serum 0.59 0.5 - 1.4 mg/dL [facility] Estimated Glomerular Filt Rate >60 [facility] Comment:Chronic Kidney Disea se: Estimated GFR < 60 mL/min/[id number] Kidney Disease: Estimated GFR < 15 mL/min/1.73m2 Glucose 97 60 - 115 mg/dL [facility] Calcium 9.7 8.4 - 10.2 mg/dL [facility] Bilirubin, Total 0.4 0.0 - 1.0 mg/dL [facility] Aspartate Amino Transferase 24 5 - 31 U/L [facility] Alanine Aminotransferase 17 0 - 31 U/L [facility] Total Protein 7.1 6.5 - 8.0 g/dL [facility] Albumin Level 4.3 3.5 - 5.0 g/dL [facility] Alkaline Phosphatase 123(H) 39 - 117 U/L [facility] Blood Venous blood specimen / Unknown 01/18/2025 12:16 PM EDT 01/18/2025 4:12 PM EDT Result Ke Patrick MD LAB BLOOD ORDERABLES Final Resul t [facility] [address] [place] [phone] * (ABNORMAL) POCT Hgb A1c (01/18/2025 11:24 AM EDT) Hemoglobin A1C 5.9(A) 4.0 - 5.7 % QC Media Lot # [id number] Lot# Expiration Date [id number] Blood 01/18/2025 11:2 4 AM EDT Result Ke Patrick MD POINT [...] JAUREGUI ID NOW (01/03/2025 1:56 PM EDT) [facility] Influenza B Negative Negative, Indeterminate [facility] QC Media Lot # [id number] [facility] Lot# Expiration Date [facility] Swab 01/03/2025 1:56 PM EDT Marilynn Schulz MD POINT OF CARE TEST ENTER /EDIT ORDERABLES Final Result Performing Organization Address [facility] Co de Phone Number [facility] [address] [place] [phone] * POCT Rapid Influenza A JAUREGUI ID NOW (01/03/2025 1:55 PM EDT) [facility] Influenza A Negative Negative, Indeterminate [facility] QC Media Lot # [id number] [facility] Lot# Expiration Date [facility] Swab 01/03/2025 1:55 PM EDT Result [facility] Marilynn Schulz MD POINT OF CARE TEST ENTER /EDIT ORDERABLES Final Result Performing Organization Address [facility] de Phone Number [facility] [address] [place] [phone] * POCT Rapid Covid-19 JAUREGUI ID NOW (01/03/2025 1:46 PM EDT) [facility] Coronavirus Antigen PCR Negative Negative, Indeterminate, None Detected, Invalid, Specimen unsatisfactory for evaluation, Weakly Positive, 2+ QC Media Lot # [id number] Lot# Expiration Date ,026 Swab 01/03/2025 1:46 PM EDT Result [facility] Marilynn Schulz MD POINT OF CARE TEST ENTER /EDIT ORDERABLES Final Result * Hepatitis C Antibody with Reflex to HCV, RNA, Quantitative, Real-Time PCR (01/19/2024 11:39 AM EDT) Hepatitis C Antibody Nonreactive Nonreactive [facility] Comment:Antibodies to HCV no t detected; does not exclude early acuteHCV infection. Blood Venous blood specimen / Unknown 01/19/2024 11:39 AM EDT 01/19/2024 1:25 PM EDT Minnie Graff MD LAB BLOOD ORDERABLES Final Res ult Performing Organization Address City/[facility]/ZIP Co de Phone Number [facility] [address] [place] [phone] * HIV-1/2 Antigen and Antibodies, Fourth Generation, with Reflexes (01/19/2024 11:39 AM EDT) Pathologist [facility] HIV AB/AG Nonreactive Nonreactive [facility] Comment:HIV-1 p24 Ag and/or HIV-1/HIV-2 Ab not detected.A test result that is nonreactive does not exclude thepossibility of exposure to or infection with HIV-1 and/orHIV-2. Nonreactive results in this assay for individualswith prior exposure to HIV-1 and/or HIV-2 may be due toantigen and antibody levels that are below the limit ofdetection of this assay.The [employer] HIV Ag/Ab Combo assay result andsupplemental assay results should be interpreted inconjunction with the patient's clinical presentation,history and other laboratory results. If the results areinconsistent with clinical evidence, additional testing issuggested to confirm the result. Blood Venous blood specimen / Unknown 01/19/2024 11:39 AM EDT 01/19/2024 1:42 PM EDT Minnie Graff MD LAB BLOOD ORDERABLES Final Res ult Performing Organization Address City/[facility]/ZIP Co de Phone Number [facility] [address] [place] [phone] * Mammography Report 1 (05/02/2021 3:05 PM EST) Anatomical Region Laterality Modality Breast Bilateral Mammography 05/02/2021 3:05 PM EST Narrative 05/03/2021 2:59 PM EST Refer to the Notes tab for result details [facility] Procedure: Mammography Report 1 Procedure Note Provider, MD Juliana - 06/16/2022 Refer to the Notes tab for result details [facility] Procedure: Mammography Report 1 Henri OLSON BI PROCEDURES Final Result from Last 3 Months or Most Recently Relevant to Health Maintenance Insurance [facility] [employer]AND[employer] [place] [phone] Care Teams Client Development Consultant Relationship Specialty Start Date End Date Name, MD Henri [address] [place] [address] PCP - General Family Medicine 04/04/15
--- OUTSIDE RECORDS SUMMARY | 2025-03-10 20:00 | XMS_ITS | Encounter Summary ---
Author Organization [employer] Address [address] [facility] [address] [place] [address] Care Team Providers Care Hardwood Floor Refinisher Name Role Phone Henir Mendoza MD Primary Care Provider [phone] Reason for Referral * Consultation (Routine) - Authorized Specialty Diagnoses / Procedures Referred By Sheila t Referred To Contact Pharmacy Diagnoses Type 2 diabetes mellitus without complication, without long-term current use of insulin (HCC) Henri Mendoza MD [address] [place] [address] Phone: tel: fax: Referral ID Status Reason Start Date Expiration Date Visits Requested Visits Authorized [id number] Authorized Consult and Treat 03/10/2025 03/10/2026 6 6 Encounter Details Date Type Department Care Team ([facility] Contact Info) Description 03/10/2025 Telephone [facility] [address] [place], [place] [phone] Theresa Monroy, PharmD [address] [place], [place] [phone] Social History Tobacco Use Types Packs/Day Years [...] as of this encounter Miscellaneous Notes * Addendum Note - Henri Mendoza MD - 03/10/2025 12:46 PM ESTAddended by: HENRI MENDOZA on: 03/10/2025 12:46 PM Modules accepted: Orders * Telephone Encounter - Theresa Monroy PharmD - 03/10/2025 10:37 AM EST Pharmacy is requesting an updated CDTM referral with a diagnosis of smoking cessation / tobacco dependence . This is to replace existing referral which does not meet visit requirements. Please send at your earliest convenience. Thank you! documented in this encounter Plan of Treatment Scheduled Referrals Name Type Priority Associated Diagnoses Orde r Schedule Referral to Pharmacy CDTM Outpatient Referral Routine Type 2 diabetes mellitus without complication, without long-term current use of insulin (HCC) Ordered: 03/10/2025 documented as of this encounter Visit Diagnoses Diagnosis Type 2 diabetes mellitus without complication, without long-term current use of insulin (HCC)- Primary documented in this encounter Additional Health Concerns Assessment Noted Time PHQ-9 Depression Total Score: 18 025 11:22 AM EDT documented as of this encounter Care Teams Hardwood Floor Refinisher Relationship Specialty Start Date End Date Name, MD Henri [address] [place] [address] PCP - General Family Medicine 04/04/15 documented as of this encounter
--- OUTSIDE RECORDS SUMMARY | 2025-03-10 20:00 | XMS_ITS | Encounter Summary ---
Author Organization [employer] Address [address] [facility] [address] [place] [address] Care Team Providers Care Product Support Manager Name Role Phone Name, Henri KEYES Primary Care Provider [phone] Encounter Details Date Type Department Care Team (Latest Contact Info) Description 03/10/2025 Travel Social History Tobacco Use Types Packs/Day [...] documented as of this encounter Care Teams Product Support Manager Relationship Specialty Start Date End Date Name, MD Henri [address] [place] [address] PCP - General Family Medicine 04/04/15 documented as of this encounter
== END 2025-03-10 18:58 | disposition home or self-care (01) ==
LOC: HO.HHCLNP 18:57
PROVIDERS: Visit Provider Advanced Practice Midwife
DX: Z12.4 Encounter for screening for malignant neoplasm of cervix (principal); Z11.51 Encounter for screening for human papillomavirus (HPV)
CPT/HCPCS: 87626; 88175